=== PATIENT | male | born 1955 | race Caucasian/White ===

== ENCOUNTER 2021-12-29 09:45 | Outpatient (CLI) | payer BC, SELFPAY ==
[2021-12-29 13:52] LABS: Chloride* 103 mmol/L (96-114); Potassium* 4.7 mmol/L (3.6-5.1); Sodium* 140 mmol/L (135-149)
[2021-12-29 13:55] LABS: Carbon Dioxide* 30 mmol/L (20-32); Cholesterol* 161 mg/dL (90-199); Creatinine* 1.1 mg/dL (0.5-1.5); Estimated Glomerular Filt Rate 74 ml/min
[2021-12-29 13:56] LABS: Blood Urea Nitrogen* 18 mg/dL (7-30); Glucose* 86 mg/dL (60-115); HDL Cholesterol* 55 mg/dL (>=40); LDL Cholesterol Calculated 95 mg/dL (<100); Triglycerides* 54 mg/dL (40-149)
[2021-12-29 14:24] LABS: PSA Screen* 0.79 ng/mL (0.10-4.00)
== END 2021-12-29 09:46 | disposition home or self-care (01) ==
PROVIDERS: PCP Family Medicine; Visit Provider Family Medicine
DX: Z12.5 Encounter for screening for malignant neoplasm of prostate (principal); Z13.1 Encounter for screening for diabetes mellitus; Z13.6 Encounter for screening for cardiovascular disorders
CPT/HCPCS: 80048; 80061; 84153

== ENCOUNTER 2022-04-12 14:58 | Outpatient (CLI) | payer BC, SELFPAY ==
[2022-04-12 17:24] LABS: Chloride* 106 mmol/L (96-114); Potassium* 4.2 mmol/L (3.6-5.1); Sodium* 139 mmol/L (135-149)
[2022-04-12 17:27] LABS: Blood Urea Nitrogen* 13 mg/dL (7-30); Calcium* 9.3 mg/dL (8.4-10.6); Carbon Dioxide* 26 mmol/L (20-32); Estimated Glomerular Filt Rate 82 ml/min; Glucose* 84 mg/dL (60-115)
[2022-04-12 17:28] LABS: Magnesium* 2.1 mg/dL (1.5-2.6)
== END 2022-04-12 14:59 | disposition home or self-care (01) ==
PROVIDERS: PCP Family Medicine; Visit Provider Family Medicine
DX: R25.2 Cramp and spasm (principal)
CPT/HCPCS: 80048; 83735

== ENCOUNTER 2022-06-24 13:22 | Outpatient (CLI) | payer BC, SELFPAY | END 2022-06-24 13:23 | disposition home or self-care (01) | LOC: LONREF 13:24 | PROVIDERS: PCP Family Medicine; Visit Provider Family Medicine | DX: M62.838 Other muscle spasm (principal) | CPT/HCPCS: 80048 ==

== ENCOUNTER 2022-12-27 14:42 | Outpatient (CLI) | payer BC, SELFPAY | END 2022-12-27 14:43 | disposition home or self-care (01) | LOC: LONREF 14:44 | PROVIDERS: PCP Family Medicine; Visit Provider Family Medicine | DX: R31.9 Hematuria, unspecified (principal); Z12.5 Encounter for screening for malignant neoplasm of prostate | CPT/HCPCS: 84153 ==

== ENCOUNTER 2023-01-04 07:31 | Outpatient (CLI) | payer BC, SELFPAY ==
--- NOTE | 2023-01-04 08:00 | CRLHL7_ITS ---
For Patients: As a result of the Century Cures Act, medical imaging exams and procedure reports are released immediately into your electronic medical record. You may view this report before your referring provider. If you have questions, please contact your health care provider. INDICATION: Hematuria. TECHNIQUE: CT abdomen and pelvis urogram without and with 100 cc Isovue 370 intravenous contrast. Contrast images were obtained in the nephrographic and delayed phases. COMPARISON: None. FINDINGS: KIDNEYS: The unenhanced images demonstrate no kidney or ureteral stones. The kidneys are normal in caliber and demonstrate normal uptake and excretion of IV contrast. No masses. The renal collecting systems and ureters are symmetrical, normal in caliber, and without evidence of mass or filling defect. URINARY BLADDER: The bladder wall is trabeculated and measures up to 5.4 millimeters. OTHER: Mild dependent areas of atelectasis are present. No pleural effusion. No free intraperitoneal air. No intrahepatic mass. Normal gallbladder. Spleen unremarkable. Small hiatal hernia. Normal adrenal glands. The pancreas is normal. Atherosclerotic changes. A few scattered prostate calcifications are present. There is no bowel obstruction. No free fluid or abscess. The appendix is normal. Stool is present throughout the colon. IMPRESSION: 1. Normal kidneys and ureters. 2. Trabecular thickening of the bladder wall measuring up to 5.4 millimeters. Cystoscopy suggested. Please note that all CT scans at this facility use dose modulation, iterative reconstruction, and/or weight-based dosing when appropriate to reduce radiation dose to as low as reasonably achievable. Dictated by Chet Muñiz MD @ 01/04/2023 11:04:23 AM (Electronically Signed)
== END 2023-01-04 07:32 | disposition home or self-care (01) ==
PROVIDERS: PCP Family Medicine; Visit Provider Family Medicine
DX: R31.9 Hematuria, unspecified (principal)
CPT/HCPCS: 74178; Q9967

== ENCOUNTER 2023-03-16 10:10 | Outpatient (CLI) | payer BC, SELFPAY ==
--- OUTSIDE RECORDS SUMMARY | 2023-03-23 09:49 | XMS_ITS | Clinical Summary ---
Author Name Unknown Organization [facility] Address [address] [place] [address] Care Team Providers Care Belt Picker Name Role Phone Elsewhere, Pcp Primary Care Provider Unavailabl e Source Comments Patient records contain information from all sites at [facility]. For routine questions regarding patient records, call [phone] during business hours, M-F 8:00 AM - 5:00 PM Central Time. Record requests for emergency care only can be directed to [phone] at any time.[facility] Allergies Active Allergy Reactions Criticality Noted Date Comments House Dust Other (see comments) 06/21/2022 Sneezing, watery eyes Medications Medication Sig Dispensed Refills Start Date End Date Status clonazePAM (KlonoPIN) 1 mg tablet Take 1 mg by mouth 2 (two) times a day as needed. 0 03/30/2022 Active UNABLE TO FIND Apply topically. Lidocaine-diltia zem 2% 0 Active fexofenadine (MARK) 180 mg tablet 180 mg daily. 0 Active fluticasone propionate (FLOVENT HFA) 220 mcg/actuation inhaler Administer into nostril(s) as needed. 0 12/29/2021 Active omeprazole (PriLOSEC) [address] capsule Take 20 mg by mouth every morning before breakfast. 0 09/21/2022 Active polyethylene glycol (MIRALAX) 17 gram/dose oral powder Take 17 g by mouth once. 0 09/21/2022 Active UNABLE TO FIND Apply topically. Lidocaine with Diltiazem 2 % 0 09/28/2022 Active lidocaine (LC-5) 5 % rectal cream Apply 1 Application topically as needed for hemorrhoids. Apply to anus. 30 g 3 02/21/2023 Active diazePAM 10 mg suppository Insert 1 suppository (10 mg total) into the rectum 3 (three) times a day. 60 suppository 1 03/02/2023 Active dilTIAZem 2%-vanicream Apply topically 2 (two) times a day. Apply to anus 30 g 3 03/17/2023 Active diazePAM 10 mg suppository Insert 1 suppository (10 mg total) into the rectum 3 (three) times a day. 60 suppository 1 03/02/2023 Discontinu ed(Reorder ) Active Problems Problem Noted Date Diagnosed Date Hemorrhoids External 02/21/2023 Fissure Anal 06/21/2022 Constipation 06/21/2022 Encounters Date Type Department Care Team Description 03/23/2023 1:15 PM PUMP MACHINE OPERATOR - 03/23/2023 2:30 PM PUMP MACHINE OPERATOR [facility] in [place], [place] [address] [place] [address] Av Kennedy M.D. EXAMINATION UNDER ANESTHESIA ANORECTAL. 03/23/2023 10:45 AM PUMP MACHINE OPERATOR Hospital Encounter [facility] in [place], [place] [address] [place] [address] Av Kennedy M.D. 03/17/2023 3:45 PM PUMP MACHINE OPERATOR Virtual Visit Division of Colon and Rectal Surgery in [place], [place] [address] [place] [address] Rishi Edward APRN, C.N.P., M.S. Fissure Anal (Primary Dx) 03/13/2023 Orders Only Division of Colon and Rectal Surgery in [place], [place] [address] [place] [address] Rishi Edward APRN, C.N.P., M.S. 03/02/2023 Orders Only Division of Colon and Rectal Surgery in [place], [place] [address] [place] [address] Rishi Edward APRN, C.N.P., M.S. 03/02/2023 Orders Only Division of Colon and Rectal Surgery in [place], [place] [address] [place] [phone] Rishi Edward APRN, C.N.P., M.S. 02/21/2023 8:30 AM PUMP MACHINE OPERATOR Comprehensive Visit Division of Colon and Rectal Surgery in [place], [place] [address] [place] [phone] Rishi Edward APRN, C.N.P., M.S. Fissure Anal (Primary Dx); Hemorrhoids External 02/20/2023 2:45 PM PUMP MACHINE OPERATOR Clinical Communication Virtual Review in [place], [place] [address] [place] [address] Pre-visit Intake 02/16/2023 Orders Only Division of Colon and Rectal Surgery in [place], [place] [address] [place] [phone] Rishi Edward APRN, Robert.N.P., M.S. 02/15/2023 Clinical Communication Division of Colon and Rectal Surgery in [place], [place] [address] [place] [phone] Rishi Edward APRN, C.N.P., M.S. Recurrent symptoms 02/15/2023 [facility] [address] [place] [address] Varsha Andrews M.D. Fissure Anal (Primary Dx); Hemorrhoids External from Last 3 Months Family History Medical History Relation Name Comments Alcohol abuse Father Rm Washington heavy drinker. Stopped drinking in early 70's Anxiety disorder Father Rm Washington Colon cancer Father Rm Washington Hypertension Father Rm Washington Other cancer Father Rm Washington Bladder Cancer Transient ischemic attack Father Rm Washington he was in his early 90's Prostate cancer Father's Brother Leonidas Washington Suicide Attempts Father's Brother Leonidas Washington Other cancer Father's Sister Cindy Sanchez don't know Other cancer Sister Irma Undefined Cance r Relation Name Status Comments Father Rm Washington Father's Brother Leonidas Washington Father's Sister Cindy Sanchez Sister Irma Social History Tobacco Use Types Packs/Day Years Used Date Smoking Tobacco: Never Smokeless Tobacco: Never Alcohol Use Standard Drinks/Week Comments Not Currently 0 (1 standard drink = 0.6 oz pure alcohol) I haven't had any alcohol in the last 10 yrs Humiliation, Afraid, Rape, and Kick questionnair e Answer Date Recorded Within the last year, have y ou been afraid of your partner or ex-partner? No 09/30/2022 Within the last year, have y ou been humiliated or emotionally abused in other ways by your partner or ex-partner? No Within the last year, have y ou been kicked, hit, slapped, or otherwise physically hurt by your partner or ex-partner? No 09/30/2022 Within the last year, have y ou been raped or forced to have any kind of sexual activity by your partner or ex-partner? No 09/30/2022 Overall Financial Resource Strain (CARDIA) Answe r Date Recorded How hard is it for you to pa y for the very basics like food, housing, medical care, and heating? Somewhat hard 09/30/2022 Exercise Vital Sign Answer Date Recorde d On average, how many days pe r week do you engage in moderate to strenuous exercise (like a brisk walk)? 2 days 09/30/2022 On average, how many minutes do you engage in exercise at this level? 20 min 09/30/2022 Hunger Vital Sign Answer Date Recorded Within the past 12 months, y ou worried that your food would run out before you got the money to buy more. Never true 10/01/19 23 Within the past 12 months, t he food you bought just didn't last and you didn't have money to get more. Never true 09/30/2022 PRAPARE - Transportation Answer Date Re corded In the past 12 months, has l ack of transportation kept you from medical appointments or from getting medications? No 09/04 In the past 12 months, has l ack of transportation kept you from meetings, work, or from getting things needed for daily living? No 09/30/2022 Nutrition Answer Date Recorded Nutrition: EVOO Fat Source Unknown 09/30 On average, how many serving s of fruits and vegetables do you eat per day (serving size is equal to 1 cup or approximately the size of a tennis ball)? 3-5 09/30/2022 Dental Answer Date Recorded Dental: Regular Dentist No 10/01/19 Employment Answer Date Recorded Employment status Retired 09/30/2022 Housing Stability Answer Date Recorded What is your living situation today? I [facility] a [facility] place to live 09/30/2022 Sex and Gender Information Value Date Recorded Sex Assigned at Male 09/30/2022 4:37 AM CDT Gender Identity Male 09/30/2022 4:37 AM CDT Sexual Orientation Straight 09/30/2022 4: 37 AM CDT Last Filed Vital Signs Vital Sign Reading Time Taken Comments Blood Pressure 112/68 07/05/2022 1:30 PM CDT Pulse 54 07/05/2022 1:30 PM CDT Temperature 36.5 ??C (97.7 ??F) 07/05/2022 12:59 PM C DT Respiratory Rate 12 07/05/2022 1:30 PM CDT Oxygen Saturation 97% 07/05/2022 1:30 PM CDT Inhaled Oxygen Concentration - - Weight 74.6 kg (164 lb 7.4 oz) 06/21/2022 7:46 A M CDT Height 176 cm (5' 9.29) 06/21/2022 7:46 AM CDT Body Mass Index 24.08 06/21/2022 7:46 AM CDT Plan of Treatment Scheduled Procedures Name Priority Associated Diagnoses Date/Ti me EXAMINATION UNDER ANESTHESIA ANORECTAL Fissure Anal Hemorrhoids External 03/23/2023 2:14 PM PUMP MACHINE OPERATOR INJECTION BOTOX - INTERNAL ANAL SPHINCTER Fissure Anal Hemorrhoids External 03/23/2023 2:14 PM PUMP MACHINE OPERATOR EXCISION SKIN TAG ANAL Fissure Anal Hemorrhoids External 03/23/2023 2:14 PM PUMP MACHINE OPERATOR Health Maintenance Due Date Last Done Comments CT Colonography 1954 Cologuard 1955 Colonoscopy 1955 Colorectal Cancer Surveillance 1955 Fasting Glucose for Diabetes Screening 1955 Hepatitis C Screening 1955 Pneumococcal vaccine (65+ ye ars) (2 of 2 - PCV) 07/17/2021 07/17/2020 Depression Screening (Annual PHQ-2) 03/06/2023 Fall Risk Screen (Annual) 03/06/2023 DTaP,Tdap,and Td Vaccines (2 - Td or Tdap) 07/17/2030 07/17/2020, 12/31/2009 Zoster Vaccines Completed 10/11/2018, 08/08/2017 COVID-19 Vaccine Completed 01/05/2023, , 06/15/2021, Additional history exists Influenza Vaccine Completed 01/05/2023, , 01/22/2021, Additional history exists Advance Directives For more information, please contact: [phone] Documents on File Type Date Recorded Patient Duct Layer Supervisor Expl anation Advance Directives 07/06/2022 8:39 AM Jazmyne Ochoa HCPOA/ADVOCATE/AGENT/RE PRESENTATIVE/SURROGATE Latest Code Status on File Code Status Date Activated Date Inactivated Comments Full Code 07/05/2022 10:35 AM 07/05/2022 4:05 PM Question Answer Comments Full Code: Discussed Healthcare Agents on File Name Relationship Healthcare Agent Relationshi p Communication Jazmyne [place] Spouse Health Care Agent Judy Murphy Unknown First Alternate Health Care Agent Care Teams Belt Picker Relationship Specialty Start Date End Date Elsewhere, Pcp PCP - General Internal Medicine 07/05/22
--- OUTSIDE RECORDS SUMMARY | 2023-03-23 09:49 | XMS_ITS | Continuity of Care Document ---
Author Name Unknown Address [address] [place] [address] Phone [phone] Organization [facility] Address [address] [place] [address] Care Team Providers Care Appraiser Real Estate Name Role Phone JENNA DE LA PAZ Primary Care Provider [phone] Assessment Encounter Date Assessment Date Assessment LastModified by Organization Details LastModified Time 01/25/2023 01/25/2023 67 Y/O MALE, HX FOR AN EPISODE OF HEMATURIA. SPONTANEOUSLY CLEARED. U/A SMALL BLOOD. CYSTO - NEG. REVIEWED RECORDS, LABS ORDERED AND REVIEWED U/A, CYSTO PLAN SCHEDULED C.T. UROGRAM. WILL CALL RESULTS. Not available 01/28/2023 16:29:22 Plan of Treatment Reminders Order Date Submit Date Provider Last Modified By Organization Details Last Modified Time Details Appointments None recorded. Lab urinalysis , dipstick 2022 023 [facility], [address], [place], [address], 10:26:41 Referral None recorded. Procedures None recorded. Surgeries None recorded. Imaging None recorded. Medication Orders None recorded. Patient TargetsNo targets recorded. Patient InstructionsNo instructions recorded. Reason for Referral None Reported. Results Created Date Observation Date Name Description Value Unit Range Abnormal Flag LastModifiedBy Organization Detail LastModifiedTime 01/26/2001/25/2023 urina lysis , dipst ick Color-Status Yellow Not Available [facility] [address], [place], [address], 01/25/2023 10:25:59 01/26/20 23 01/25/2023 urina lysis , dipst ick Clarity-Stat us Clear Not Available [facility] [address], [place], [address], 01/25/2023 10:25:59 01/26/20 23 01/25/2023 urina lysis , dipst ick Glucose-Stat us Negati ve Not Available [facility] [address], [place], [address], 01/25/2023 10:25:59 01/26/20 23 01/25/2023 urina lysis , dipst ick Bilirubin-St atus Negati ve Not Available [facility] [address], [place], [address], 01/25/2023 10:25:59 01/26/20 23 01/25/2023 urina lysis , dipst ick Ketones-Stat us Negati ve Not Available [facility] [address], [place], [address], 01/25/2023 10:25:59 01/26/20 23 01/25/2023 urina lysis , dipst ick Sp [place]-Stat us 1.015 Not Available [facility] [address], [place], [address], 01/25/2023 10:25:59 01/26/20 23 01/25/2023 urina lysis , dipst ick pH-Status 7.0 Not Available [facility] [address], [place], [address], 01/25/2023 10:25:59 01/26/20 23 01/25/2023 urina lysis , dipst ick Urobilinogen -Status 0.2 Not Available [facility] [address], [place], [address], 01/25/2023 10:25:59 01/26/20 23 01/25/2023 urina lysis , dipst ick Nitrates-Sta tus negati ve Not Available [facility] [address], [place], [address], 01/25/2023 10:25:59 01/26/20 23 01/25/2023 urina lysis , dipst ick Blood-Status Trace Not Available [facility] [address], [place], [address], 01/25/2023 10:25:59 01/26/20 23 01/25/2023 urina lysis , dipst ick Leuko-Status Negati ve Not Available [facility] [address], [place], [address], 01/25/2023 10:25:59 01/26/20 23 01/25/2023 urina lysis , dipst ick Specimen Type Voided Not Available [facility] [address], [place], [address], 01/25/2023 10:25:59 Result Notes None recorded. Problems Name Status [place] Date Resolution Date Notes Provider Name and Address Organization Details Recorded Time Heriberto hematuria Active 3 Christian Iraheta MD [address] [place] [address],[address], [address], [facility] 01/25/2023 10:22:50 Problem Notes None recorded. Procedures Surgical History Date Name Laterality Status Provider Name and Address Organization Details Recorded Time 01/26/20 23 CystoscopyMale completed Christian Iraheta MD [address] [place] [address],[address], [address], [facility] 01/28/2023 16:26:24 Orthopedic Surgery completed Christian Iraheta MD [address] [place] [address],[address], [address], [facility] 01/25/2023 10:23:41 Imaging Results None recorded. Procedure Notes None recorded. Medical Equipment None Reported. Allergies No known drug allergies Medications Name Sig Start Date Stop Date Status Note LastModified by Organization Details LastModified Time clonazepam 1 mg tablet TAKE ONE TABLET BY MOUTH TWICE A DAY NEEDED FOR ANXIETY active Not Available Not Available No t Available fexofenadin e 180 mg tablet Take 1 tablet every day by oral route. active Not Available Not Available No t Available Nitro-Bid 2 % transdermal ointment 01/25 completed Not Available Not Available Not Available montelukast 10 mg tablet TAKE ONE TABLET(10 MG) BY MOUTH EVERY DAY AT BEDTIME active Not Available Not Available No t Available finasteride 5 mg tablet TAKE 1/2 TABLET(2. 5 MG) BY MOUTH EVERY DAY 01/25 completed Not Available Not Available Not Available clindamycin 1 % lotion APPLY 1 APPLICATI ON TOPICALLY EVERY DAY DIRECTED 01/25 completed Not Available Not Available Not Available Miralax active Not Available Not Avail able Not Available lidocaine 2 % mucosal jelly in applicator Take by mucous route. active Not Available Not Available No t Available Vitals Date Recorded Body height Body mass index (BMI) Body weight Provider Name and Address Organization Details Last Updated DateTime 01/25/2023 172.72 cm 26 kg/m2 19652.3 g Christian Iraheta MD [address] [place] [address] [facility] 01/25/2023 10:20:42 Social History Question Answer Notes LastModified by Organizat ion Details LastModified Time Tobacco Smoking Status Never Smoker Christian Iraheta MD [address] [place] [address], [address] [place] [address] Urology 01/25/2023 10:23:30 What Is Your Level Of Alcohol Consumption? None Information not available 01/25/2023 What Was The Date Of Your Most Recent Tobacco Screening? 01/25/2023 Information not available 01/25/2023 Sex: Male Functional Status None recorded. Mental Status None recorded. Family History Relationship Description Onset Age of this Age Resolved Age Notes Father Malignant tumor of u rinary bladder Medical History Condition Response Diabetes N Sexually Transmitted Infection N Bleeding Disorder N Other N High Blood Pressure Y Kidney Stones N High Cholesterol N GERD/Acid Reflux Y Heart Disease N Cancer N Depression Y Lung Disease N Immunizations Vaccine Type Date Status Provider Name and Address Organization Details Recorded Time zoster recombinant 10/11/2018 completed Christian grady MD [address] [place] [address],[address], [address], [facility] 01/25/2023 10:20:47 influenza, high-dose, quadrivalent 12/23/2021 completed Christian Iraheta MD [address] [place] [address],[address], [address], [facility] 01/25/2023 10:20:47 influenza, high-dose, quadrivalent 01/05/2023 completed Christian Iraheta MD [address] [place] [address],[address], [address], [facility] 01/25/2023 10:20:48 influenza, high-dose, quadrivalent 01/22/2021 completed Christian Iraheta MD [address] [place] [address],[address], [address], [facility] 01/25/2023 10:20:48 MMR 07/12/2018 completed Christian Iraheta MD [address] [place] [address],[address] [place] [address], [phone], [facility] 01/25/2023 10:20:48 COVID-19, mRNA, LNP-S, PF, 30 mcg/0.3 mL dose 05/12/2020 completed Christian Iraheta MD [address] [place] [address],[address], [address], [facility] 01/25/2023 10:20:48 COVID-19, mRNA, LNP-S, PF, 30 mcg/0.3 mL dose 06/02/2020 completed Christian Iraheta MD [address] [place] [address],[address], [address], [facility] 01/25/2023 10:20:48 COVID-19, mRNA, LNP-S, PF, 30 mcg/0.3 mL dose 01/01/2021 completed Christian Iraheta MD [address] [place] [address],[address], [address], [facility] 01/25/2023 10:20:48 COVID-19, mRNA, LNP-S, PF, 30 mcg/0.3 mL dose, norma-sucrose 06/15/2021 completed Christian Iraheta MD [address] [place] [address],[address], [place], [address], [facility] 01/25/2023 10:20:48 COVID-19, mRNA, LNP-S, bivalent, PF, 30 mcg/0.3 mL dose 12/23/2021 completed Christian Iraheta MD [address] [place] [address],[address], [place], [address], [facility] 01/25/2023 10:20:48 COVID-19, mRNA, LNP-S, PF, norma-sucrose, 30 mcg/0.3 mL 01/05/2023 completed Christian Iraheta MD [address] [place] [address],[address] [place] [address], [phone], [facility] 01/25/2023 10:20:48 pneumococcal polysaccharide PPV23 07/17/2020 completed Christian Iraheta MD [address] [place] [address],[address] [place] [address], [phone], [facility] 01/25/2023 10:20:48 Tdap 07/17/2020 completed Christian Iraheta MD [address] [place] [address],[address] [place] [address], [address], [facility] 01/25/2023 10:20:48 Td (adult), 5 Lf tetanus toxoid, preservative free, adsorbed 12/31/2009 completed Christian Iraheta MD [address] [place] [address],[address], [address], [facility] 01/25/2023 10:20:48 influenza, injectable, quadrivalent, preservative free 12/14/2018 completed Christian Iraheta MD [address] [place] [address],[address], [address], [facility] 01/25/2023 10:20:48 Past Encounters Encounter ID Performer Location Encounter Start Date Encounter Closed Date Diagnosis/Indication [id number] MD ABDULAZIZ [facility] [place] [address] 01/25/2023 10:06:31 02/01/2023 15:57:31 Heriberto hematuria Health Concerns Section Related Observation LastModified by Organization Detai ls LastModified Time None Recorded Concern Status LastModified by Organization Details LastModified Time None Recorded Payers Encounter Date Sequence Insurance Name Policy Number Policy Curtis Covered Member ID Curtis Member ID Guarantor Name 01/25/2023 1 [id number] Slim Washington [id number] Slim Starkyd Notes Date Note Type Note Provider Name and Address Organization Details Recorded Time 01/25/2023 text/html HPI Notes: 67 YO M HERE FOR EPISODIC HEMATURIA. HE REPORTS PASSING SMALL CLOTS IN DECEMBER. [facility] TODAY SHOWS TRACE RBC. FATHER HAD BLADDER CANCER .VOIDING WELL. NO BLEEDING PROBLEMS Christian Iraheta MD [address] [facility],[address], [place], [address], [facility] 01/28/2023 16:30:29
--- OUTSIDE RECORDS SUMMARY | 2023-03-23 09:49 | XMS_ITS | Referral Summary ---
Author Name Unknown Organization [facility] Address [address] [place] [address] Care Team Providers Care Prepared Foods Supervisor Name Role Phone Elsewhere, Pcp Primary Care Provider Unavailabl e Source Comments Patient records contain information from all sites at [facility]. For routine questions regarding patient records, call [phone] during business hours, M-F 8:00 AM - 5:00 PM Central Time. Record requests for emergency care only can be directed to [phone] at any time.[facility] Encounters Date Type Department Care Team Description 03/23/2023 1:15 PM CLINICAL TRIALS SPECIALIST - 03/23/2023 2:30 PM CLINICAL TRIALS SPECIALIST Surgery Outpatient Procedure Center in [place], [place] [address] [place] [address] Av Kennedy M.D. EXAMINATION UNDER ANESTHESIA ANORECTAL. 03/23/2023 10:45 AM CLINICAL TRIALS SPECIALIST Hospital Encounter Outpatient Procedure Center in [place], [place] [address] [place] [phone] Av Kennedy M.D. 03/17/2023 3:45 PM CLINICAL TRIALS SPECIALIST Virtual Visit Division of Colon and Rectal Surgery in [place], [place] [address] [place] [phone] Rishi Edward, MORENA, C.N.P., M.S. Fissure Anal (Primary Dx) 03/13/2023 Orders Only Division of Colon and Rectal Surgery in [place], [place] [address] [place] [phone] Rsihi Edward APRN, C.N.P., M.S. 03/02/2023 Orders Only Division of Colon and Rectal Surgery in [place], [place] [address] [place] [phone] Rishi Edward APRN, Robert.N.P., M.S. 03/02/2023 Orders Only Division of Colon and Rectal Surgery in [address] [phone] Rishi Edward APRN, C.N.P., M.S. 02/21/2023 8:30 AM CLINICAL TRIALS SPECIALIST Comprehensive Visit Division of Colon and Rectal Surgery in [address] [phone] Rishi Edward APRN, Robert.N.P., M.S. Fissure Anal (Primary Dx); Hemorrhoids External 02/20/2023 2:45 PM CLINICAL TRIALS SPECIALIST Clinical Communication Virtual Review in [place], [place] 200 [place] [address] Pre-visit Intake 02/16/2023 Orders Only Division of Colon and Rectal Surgery in [place], [place] [address] [place] [phone] Rishi Edward APRN, C.N.P., M.S. 02/15/2023 Clinical Communication Division of Colon and Rectal Surgery in [address] [phone] Rishi Edward APRN, C.N.P., M.S. Recurrent symptoms 02/15/2023 [facility] Orders [facility] [address] [place] [address] Varsha Andrews M.D. Fissure Anal (Primary Dx); Hemorrhoids External from Last 3 Months Allergies Active Allergy Reactions Criticality Noted Date [...] External 02/21/2023 Fissure Anal 06/21/2022 Constipation 06/21/2022 Social History Tobacco Use Types Packs/Day Years [...] money to buy more. Never true 10/01/19 Within the past 12 months, t he [...] your living situation today? I have a [facility] place to live 09/30/2022 Sex and Gender [...] Fissure Anal Hemorrhoids External 03/23/2023 2:14 PM CLINICAL TRIALS SPECIALIST INJECTION BOTOX - INTERNAL ANAL SPHINCTER Fissure Anal Hemorrhoids External 03/23/2023 2:14 PM CLINICAL TRIALS SPECIALIST EXCISION SKIN TAG ANAL Fissure Anal Hemorrhoids External 03/23/2023 2:14 PM CLINICAL TRIALS SPECIALIST Advance Directives For more information, please contact: [phone] Documents on File Type Date Recorded Patient Ad Operations Coordinator Expl anation Advance Directives 07/06/2022 8:39 AM Jazmyne Ochoa HCPOA/ADVOCATE/AGENT/RE PRESENTATIVE/SURROGATE Latest Code Status on File Code Status Date Activated Date Inactivated Comments Full Code 07/05/2022 10:35 AM 07/05/2022 4:05 PM Question Answer Comments Full Code: Discussed Healthcare Agents on File Name Relationship Healthcare Agent [facility] Jazmyne Washington Spouse Health Care Agent Judy Murphy Unknown First Alternate Health Care Agent Care Teams Prepared Foods Supervisor Relationship Specialty Start Date End Date Elsewhere, Pcp PCP - General Internal Medicine 07/05/22
--- OUTSIDE RECORDS SUMMARY | 2023-03-23 09:49 | XMS_ITS | Encounter Summary ---
Author Name Unknown Organization [facility] Address [address] [place] [address] Care Team Providers Care Repair Operator Name Role Phone Elsewhere, Pcp Primary Care Provider Unavailabl e Reason for Visit * Auth/Cert (Routine) Specialty Diagnoses / Procedures Referred By Isiah t Referred To Contact Diagnoses Fissure Anal Hemorrhoids External Fissure Anal [K60.2] Hemorrhoids External [K64.4] Procedures TX CHEMODENERV INTRNL ANAL SPHINCTER TX EXCISN EXTRNL PAPILLA ANUS SNGL TX INJECTION,ONABOTULINUMTOXINA EXAMINATION UNDER ANESTHESIA ANORECTAL INJECTION BOTOX - INTERNAL ANAL SPHINCTER EXCISION SKIN TAG ANAL Referral ID Status Reason Start Date Expiration Date Visits Re quested Visits Authorized [id number] 1 1 Encounter Details Date Type Department Care Team (Late st Contact Info) Description 03/23/2023 1:15 PM MEAL TEMPERER - 03/23/2023 2:30 PM MEAL TEMPERER Surgery Outpatient Procedure Center in [place], [place] 200 [place] [address] Av Kennedy M.D. [address] [place] [phone] EXAMINATION UNDER ANESTHESIA ANORECTAL. Social History Tobacco Use Types Packs/Day Years [...] Orientation Straight 09/30/2022 4: 37 AM CDT documented as of this encounter Plan of Treatment Scheduled Procedures Name Priority Associated Diagnoses Date/Ti me EXAMINATION UNDER ANESTHESIA ANORECTAL Fissure Anal Hemorrhoids External 03/23/2023 2:14 PM MEAL TEMPERER INJECTION BOTOX - INTERNAL ANAL SPHINCTER Fissure Anal Hemorrhoids External 03/23/2023 2:14 PM MEAL TEMPERER EXCISION SKIN TAG ANAL Fissure Anal Hemorrhoids External 03/23/2023 2:14 PM MEAL TEMPERER documented as of this encounter Visit Diagnoses Diagnosis Fissure Anal Hemorrhoids External documented in this encounter Admitting Diagnoses Diagnosis Fissure Anal Hemorrhoids External documented in this encounter Care Teams Repair Operator Relationship Specialty Start Date End Date Elsewhere, Pcp PCP - General Internal Medicine 07/05/22 documented as of this encounter
--- OUTSIDE RECORDS SUMMARY | 2023-03-23 09:49 | XMS_ITS | Data Portability ---
Author Name Unknown Address [address] [place] [address] Phone [phone] Organization [facility] Address [address] [place] [address] Care Team Providers Care Table Tender Name Role Phone JENNA DE LA PAZ Primary Care Provider Assessment Encounter Date Assessment Date Assessment LastModified [...] 2022 023 [facility], [address], [place], [address], 3 10:26:41 Referral None recorded. Procedures None recorded. Surgeries None recorded. Imaging None recorded. Medication Orders None recorded. Patient TargetsNo targets recorded. Patient InstructionsNo instructions recorded. Reason for Referral None Reported. Results Created Date Observation Date Name Description Value Unit Range Abnormal Flag LastModifiedBy Organization Detail LastModifiedTime 01/26/2001/25/2023 urina lysis , dipst ick Color-Status Yellow Not Available [facility] [address], [place], [address], 01/25/2023 10:25:59 01/26/20 23 01/25/2023 urina lysis , dipst ick Clarity-Stat us Clear Not Available [facility] [address], [place], [address], 01/25/2023 10:25:59 01/26/20 23 01/25/2023 urina lysis , dipst ick Glucose-Stat us Negati ve Not Available [facility] [address], [place], [address], 01/25/2023 10:25:59 01/26/20 23 01/25/2023 urina lysis , dipst ick Bilirubin-St atus Negati ve Not Available [facility] [address], [place], [address], 01/25/2023 10:25:59 01/26/20 23 01/25/2023 urina lysis , dipst ick Ketones-Stat us Negati ve Not Available [facility] [address], [place], [address], 01/25/2023 10:25:59 01/26/20 23 01/25/2023 urina lysis , dipst ick Sp [place]-Stat us 1.015 Not Available [facility] [address], [place], [address], 01/25/2023 10:25:59 01/26/20 23 01/25/2023 urina lysis , dipst ick pH-Status 7.0 Not Available [facility] [address], [place], [address], 01/25/2023 10:25:59 01/26/20 23 01/25/2023 urina lysis , dipst ick Urobilinogen -Status 0.2 Not Available [facility] [address], [place], [address], 01/25/2023 10:25:59 01/26/20 23 01/25/2023 urina lysis , dipst ick Nitrates-Sta tus negati ve Not Available [facility] [address], [place], [address], 01/25/2023 10:25:59 01/26/20 23 01/25/2023 urina lysis , dipst ick Blood-Status Trace Not Available [facility] [address], [place], [address], 01/25/2023 10:25:59 01/26/20 23 01/25/2023 urina lysis , dipst ick Leuko-Status Negati ve Not Available [facility] [address], [place], [address], 01/25/2023 10:25:59 01/26/20 23 01/25/2023 urina lysis , dipst ick Specimen Type Voided Not Available [facility] [address], [place], [address], 01/25/2023 10:25:59 Result Notes None recorded. Problems Name Status Onset Date Resolution Date Notes Provider Name and Address Organization Details Recorded Time Heriberto hematuria Active 3 Christian Iraheta MD [address] [place] [address], [phone], [facility] 01/25/2023 10:22:50 Problem Notes None recorded. Procedures Surgical History Date Name Laterality Status Provider Name and Address Organization Details Recorded Time 01/26/20 CystoscopyMale completed Christian Iraheta MD [address] [place] [address], [phone], [facility] 01/28/2023 16:26:24 Orthopedic Surgery completed Christian Iraheta MD [address] [place] [address],[address], [address], [facility] 01/25/2023 10:23:41 Imaging Results None recorded. [...] Updated DateTime 01/25/2023 172.72 cm 26 kg/m2 89996.3 g Christian Iraheta MD [address] [place] [address], [address] [place] [address] Urology 01/25/2023 10:20:42 Social History Question Answer Notes LastModified by Organizat ion Details LastModified Time Tobacco Smoking Status Never Smoker Christian Iraheta MD [address] [place] [address], [address] [place] [address] Urology 01/25/2023 10:23:30 What Is Your Level Of Alcohol Consumption? None Information not available 01/25/2023 What Was The Date Of Your Most Recent Tobacco Screening? 01/25/2023 Information not available 01/25/2023 Sex: Male Functional Status None recorded. Mental Status None recorded. Family History Relationship Description Onset Age of this Age Resolved Age Notes Father Malignant tumor of u rinary bladder Medical History Condition Response Sexually Transmitted Infection N Diabetes N Other N Bleeding Disorder N High Blood Pressure Y Kidney Stones N High Cholesterol N GERD/Acid Reflux Y Heart Disease N Cancer N Depression Y Lung Disease N Immunizations Vaccine Type Date Status Provider Name and Address Organization Details Recorded Time zoster recombinant 10/11/2018 completed Christian grady MD [address] [place] [address],[address], [address], [facility] 01/25/2023 10:20:47 influenza, high-dose, quadrivalent 12/23/2021 completed Christian Iraheta MD [address] [place] [address],[address], [phone], [facility] 01/25/2023 10:20:47 influenza, high-dose, quadrivalent 01/05/2023 completed Christian Iraheta MD [address] [place] [address],[address], [address], [facility] 01/25/2023 10:20:48 influenza, high-dose, quadrivalent 01/22/2021 completed Christian Iraheta MD [address] [place] [address],[address], [address], [facility] 01/25/2023 10:20:48 MMR 07/12/2018 completed Christian Iraheta MD [address] [place] [address],[address], [address], [facility] 01/25/2023 10:20:48 COVID-19, mRNA, LNP-S, PF, 30 mcg/0.3 mL dose 05/12/2020 completed Christian Iraheta MD [address] [place] [address],[address], [address], [facility] 01/25/2023 10:20:48 COVID-19, mRNA, LNP-S, PF, 30 mcg/0.3 mL dose 06/02/2020 completed Christian Iraheta MD [address] [place] [address],[address] [address], [facility] 01/25/2023 10:20:48 COVID-19, mRNA, LNP-S, PF, 30 mcg/0.3 mL dose 01/01/2021 completed Christian Iraheta MD [address] [place] [address],[address], [address], [facility] 01/25/2023 10:20:48 COVID-19, mRNA, LNP-S, PF, 30 mcg/0.3 mL dose, norma-sucrose 06/15/2021 completed Christian Iraheta MD [address] [place] [address],[address], [place], [address], [facility] 01/25/2023 10:20:48 COVID-19, mRNA, LNP-S, bivalent, PF, 30 mcg/0.3 mL dose 12/23/2021 completed Christian Iraheta MD [address] [place] [address],[address], [place], [address], [facility] 01/25/2023 10:20:48 COVID-19, mRNA, LNP-S, PF, norma-sucrose, 30 mcg/0.3 mL 01/05/2023 completed Christian Iraheta MD [address] [place] [address],[address], [address], [facility] 01/25/2023 10:20:48 pneumococcal polysaccharide PPV23 07/17/2020 completed Christian Iraheta MD [address] [place] [address],[address], [address], [facility] 01/25/2023 10:20:48 Tdap 07/17/2020 completed Christian Iraheta MD [address] [place] [address],[address], [address], [facility] 01/25/2023 10:20:48 Td (adult), 5 Lf tetanus toxoid, preservative free, adsorbed 12/31/2009 completed Christian Iraheta MD [address] [place] [address],[address], [address], [facility] 01/25/2023 10:20:48 influenza, injectable, quadrivalent, preservative free 12/14/2018 completed Christian Iraheta MD [address] [place] [address],[address], [address], [facility] 01/25/2023 10:20:48 Past Encounters Encounter ID Performer Location Encounter Start Date Encounter Closed Date Diagnosis/Indication [id number] MD ABDULAZIZ [facility] [address] [place] [address] 01/25/2023 10:06:31 02/01/2023 15:57:31 Heriberto hematuria Health Concerns Section Related Observation LastModified by Organization Detai ls LastModified Time None Recorded Concern Status LastModified by Organization Details LastModified Time None Recorded Advance Directives Directive None Recorded Payers Encounter Date Sequence Insurance Name Policy Number Policy Curtis Covered Member ID Curtis Member ID Guarantor Name 01/25/2023 1 [id number] Slim Washington [id number] Slim Washington Notes Date Note Type Note Provider Name and Address Organization Details Recorded Time 01/25/2023 text/html HPI Notes: 67 YO M HERE FOR EPISODIC HEMATURIA. HE REPORTS PASSING SMALL CLOTS IN DECEMBER. [facility] TODAY SHOWS TRACE RBC. FATHER HAD BLADDER CANCER .VOIDING WELL. NO BLEEDING PROBLEMS Christian Iraheta MD [address], [place], [address], [facility] 01/28/2023 16:30:29
--- OUTSIDE RECORDS SUMMARY | 2023-03-23 09:49 | XMS_ITS ---
Author Name Unknown Organization [facility] Address [address] [place] [address] Care Team Providers Care Consumer Sales Representative Name Role Phone Unavailable Unavailable Unavailable Surgery Details Not on file Complications Check Surgery Details section. Procedure Estimated Blood Loss Check Surgery Details section. Procedure Findings Check Surgery Details section. Procedure Specimens Taken Check Surgery Details section.
--- OUTSIDE RECORDS SUMMARY | 2023-03-23 09:50 | XMS_ITS | Encounter Summary ---
Author Name Unknown Organization [facility] Address [address] [place] [address] Care Team Providers Care Web Content Producer Name Role Phone Elsewhere, Pcp Primary Care Provider Unavailabl e Reason for Visit * Outpatient (Routine) - Closed Specialty Diagnoses / Procedures Referred By Isiah milligan Referred To Contact Colon and Rectal Surgery Diagnoses Fissure Anal Hemorrhoids External Varsha Andrews M.D. [address] [place] [address] [facility] Referral ID Status Reason Start Date Expiration Date Visits Re quested Visits Authorized [id number] Closed 02/15/2023 02/15/2024 1 1 Encounter Details Date Type Department Care Team (Latest Contact Info) Description 02/21/2023 8:30 AM BUYER INTERNSHIP Comprehensive Visit Division of Colon and Rectal Surgery in [place], [place] [address] [place] [phone] Rishi Edward, MORENA, C.N.P., M.S. [address] [place] [phone] Fissure Anal (Primary Dx); Hemorrhoids External Social History Tobacco Use Types Packs/Day Years [...] AM CDT documented as of this encounter Progress Notes * Rishi Edward, MORENA, C.N.P., M.S. - 02/21/2023 8:30 AM CST SUBJECTIVE CHIEF COMPLAINT / REASON FOR VISIT Slim Washington is a 67 y.o. male who presents for evaluation of anal pain. HISTORY OF PRESENT ILLNESS Mr. Washington is a pleasant 67-year-old gentleman who returns to the anorectal surgery Clinic today forevaluation of new onset anal pain in the setting of a history of anal fissure. Mr. Washington was seen by myself in June of 2022 where he was diagnosed with an anal fissure in the posterior midline position. He underwent an examination under anesthesia with Botox injection on July [address] Lozoya. He actually did relatively well after this and were had no significant symptoms up until approximately 1 week ago. Mr. Washington states that starting approximately 2 weeks ago he started to experience severe pain around the anus. He has shooting pain down his legs as well as a dull ache in the anal area. This is certainly worse with bowel movements. This will sometimes keep him up at night as well. He endorses mild blood on the toilet paper but otherwise no significant bleeding. He has been using diltiazem and completing Sitz baths on a daily basis. He also takes MiraLax daily. The following portions of the patient's history were reviewed and updated as appropriate: allergies, current medications, family history, medical history, social history, surgical history, and problem list. OBJECTIVE PHYSICAL EXAM Constitutional Appearance: Normal appearance. Neurological General: No focal deficit present. Mental Status: He is alert and oriented to person, place, and time. Psychiatric Mood and Affect: Mood normal. Behavior: Behavior normal. Rectum: Rectal examination was performed with the patient in the prone bobbi- knife position with NUBIA Hameed present. External evaluation reveals 2 moderately-sized and inflamed anal tags in the posterior midline position with associated hypergranulated tissue. 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 The exam was somewhat limited due to patient's pain. No other abnormalities. ASSESSMENT / PLAN #1 Hemorrhoids External #2 Fissure Anal The patient was listed for surgery on March 23, 2023 Surgeon: Dr. Kennedy Procedure: Examination under anesthesia with Botox injection, possible anal tag removal Consent form completed Does the patient have Crohn's disease: No Fistula case: no Position for surgery: Supine position (coccyx is at 6 o'clock) Picture in QREADS available: no The risks, benefits, and alternatives to the planned procedure were discussed in detail, including the risk of exposure to COVID-19 within the facility. All questions pertaining to the procedure and these risks were answered and the patient agreed to proceed. 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 He stated last time during his examination under anesthesia he experience headaches for several days following. I stated that I would note this in his chart but he should also notify anesthesia when he reports for his procedure on the . I explained to him that we will complete a repeat Botox injection with possible anal tag removal. This will largely be dependent on what Dr. Kennedy feels would be beneficial. The skin tags may be irritating in aggravating the current fissure so removal could be beneficial but this will be left up to the surgeon. He verbalized understanding and has no further questions. There is no bowel prep or skin prep for anorectal surgery. The adult fasting guidelines were reviewed. Medications were reviewed. All questions were answered. Patient was given my contact information. R INTERNSHIP documented in this encounter Plan of Treatment Scheduled Procedures Name Priority Associated Diagnoses Date/Ti me EXAMINATION UNDER ANESTHESIA ANORECTAL Fissure Anal Hemorrhoids External 03/23/2023 2:14 PM BUYER INTERNSHIP INJECTION BOTOX - INTERNAL ANAL SPHINCTER Fissure Anal Hemorrhoids External 03/23/2023 2:14 PM BUYER INTERNSHIP EXCISION SKIN TAG ANAL Fissure Anal Hemorrhoids External 03/23/2023 2:14 PM BUYER INTERNSHIP documented as of this encounter Visit Diagnoses Diagnosis Fissure Anal- Primary Hemorrhoids External documented in this encounter Care Teams Web Content Producer Relationship Specialty Start Date End Date Elsewhere, Pcp PCP - General Internal Medicine 07/05/22 documented as of this encounter
--- OUTSIDE RECORDS SUMMARY | 2023-03-23 09:50 | XMS_ITS | Encounter Summary ---
Author Name Unknown Organization [facility] Address [address] [place] [address] Care Team Providers Care Combat Systems Engineer Name Role Phone Elsewhere, Pcp Primary Care Provider Unavailabl e Reason for Referral * Outpatient (Routine) - Closed Specialty Diagnoses / Procedures Referred By Isiah milligan Referred To Contact Colon and Rectal Surgery Rishi Edward APRN C.N.P., M.S. [address] [place] [phone] [facility] Referral ID Status Reason Start Date Expiration Date Visits Re quested Visits Authorized [id number] Closed 03/13/2023 03/12/2026 1 1 ORTHOPEDIST Encounter Details Date Type Department Care Team (Late st Contact Info) Description 03/13/2023 Orders Only Division of Colon and Rectal Surgery in [place], [place] [address] [place] [phone] Rishi Edward APRN, C.N.P., M.S. [address] [place] [phone] Social History Tobacco Use Types Packs/Day Years [...] your living situation today? I have a [facility] place to live 09/30/2022 Sex and Gender Information Value Date Recorded Sex Assigned at Male 09/30/2022 4:37 AM CDT Gender Identity Male 09/30/2022 4:37 AM CDT Sexual Orientation Straight 09/30/2022 4: 37 AM CDT documented as of this encounter Plan of Treatment Scheduled Procedures Name Priority Associated Diagnoses Date/Ti me EXAMINATION UNDER ANESTHESIA ANORECTAL Fissure Anal Hemorrhoids External 03/23/2023 2:14 PM FOOT ORTHOPEDIST INJECTION BOTOX - INTERNAL ANAL SPHINCTER Fissure Anal Hemorrhoids External 03/23/2023 2:14 PM FOOT ORTHOPEDIST EXCISION SKIN TAG ANAL Fissure Anal Hemorrhoids External 03/23/2023 2:14 PM FOOT ORTHOPEDIST Scheduled Referrals Name Type Priority Associated Diagnoses Orde r Schedule Colon and Rectal Surgery office visit (clinic) Outpatient Referral Routine Expected: 03/13/2023 (Approximate), Expires: 06/11/2024 documented as of this encounter Visit Diagnoses Not on filedocumented in this encounter Care Teams Combat Systems Engineer Relationship Specialty Start Date End Date Elsewhere, Pcp PCP - General Internal Medicine 07/05/22 documented as of this encounter
--- OUTSIDE RECORDS SUMMARY | 2023-03-23 09:50 | XMS_ITS | Encounter Summary ---
Author Name Unknown Organization [facility] Address [address] [place] [address] Care Team Providers Care Commercial Account Officer Name Role Phone Elsewhere, Pcp Primary Care Provider Unavailabl e Reason for Visit * Reason Onset Date Comments Constipated/bloating 07/06/2022 Encounter Details Date Type Department Care Team (Latest Contact Info) Description 07/06/2022 Clinical Communication Division of Colon and Rectal Surgery in [place], [place] [address] [place] [phone] Rishi Edward, INVOICE MACHINE OPERATOR, C.N.P., M.S. [address] [place] [phone] Constipated/bloatin g Social History Tobacco Use Types Packs/Day Years Used Date Smoking Tobacco: Never Smokeless Tobacco: Never Nutrition Answer Date Recorded Nutrition: EVOO Fat Source Unknown 05/12 Nutrition: Servings of Fruits/Vegetables per Day Not on file 05/12/2022 Dental Answer Date Recorded Dental: Regular Dentist Unknown 05/13/19 Sex and Gender Information Value Date Recorded Sex Assigned at Male 09/30/2022 4:37 AM CDT Gender Identity Male 09/30/2022 4:37 AM CDT Sexual Orientation Straight 09/30/2022 4: 37 AM CDT documented as of this encounter Miscellaneous Notes * Telephone Encounter - Isha De La Cruz - 07/06/2022 8:55 AM CDT - Communication preference (portal or call): Phone Summary of Call: Patient had Botox yesterday. Today he is constipated, bloated, and having a lot ofpain and pain. He has tried MiraLAX and Tylenol, and it doesn't seem to be helping. [phone] documented in this encounter Plan of Treatment Scheduled Procedures Name Priority Associated Diagnoses Date/Ti me EXAMINATION UNDER ANESTHESIA ANORECTAL Fissure Anal Hemorrhoids External 03/23/2023 2:14 PM HAND MOLDER AND CASTER INJECTION BOTOX - INTERNAL ANAL SPHINCTER Fissure Anal Hemorrhoids External 03/23/2023 2:14 PM HAND MOLDER AND CASTER EXCISION SKIN TAG ANAL Fissure Anal Hemorrhoids External 03/23/2023 2:14 PM HAND MOLDER AND CASTER documented as of this encounter Visit Diagnoses Not on filedocumented in this encounter Care Teams Commercial Account Officer Relationship Specialty Start Date End Date Elsewhere, Pcp PCP - General Internal Medicine 07/05/22 documented as of this encounter
--- OUTSIDE RECORDS SUMMARY | 2023-03-23 09:50 | XMS_ITS | Encounter Summary ---
Author Name Unknown Organization [facility] Address [address] [place] [address] Care Team Providers Care Tinware Lithograph Press Operator Name Role Phone Elsewhere, Pcp Primary Care Provider Unavailabl e Reason for Visit * Reason Onset Date Comments Pre-visit Intake 02/20/2023 Encounter Details Date Type Department Care Team (Latest Contact Info) Description 02/20/2023 2:45 PM GLOST TILE SHADER Clinical Communication Virtual Review in [place], [place] 200 [place], [place] [id number] Pre-visit Intake Social History Tobacco Use Types Packs/Day Years [...] your living situation today? I have a [facility] place to live 09/30/2022 Sex and Gender Information Value Date Recorded Sex Assigned at Male 09/30/2022 4:37 AM CDT Gender Identity Male 09/30/2022 4:37 AM CDT Sexual Orientation Straight 09/30/2022 4: 37 AM CDT documented as of this encounter Plan of Treatment Scheduled Procedures Name Priority Associated Diagnoses Date/Ti me EXAMINATION UNDER ANESTHESIA ANORECTAL Fissure Anal Hemorrhoids External 03/23/2023 2:14 PM GLOST TILE SHADER INJECTION BOTOX - INTERNAL ANAL SPHINCTER Fissure Anal Hemorrhoids External 03/23/2023 2:14 PM GLOST TILE SHADER EXCISION SKIN TAG ANAL Fissure Anal Hemorrhoids External 03/23/2023 2:14 PM GLOST TILE SHADER documented as of this encounter Visit Diagnoses Not on filedocumented in this encounter Care Teams Tinware Lithograph Press Operator Relationship Specialty Start Date End Date Elsewhere, Pcp PCP - General Internal Medicine 07/05/22 documented as of this encounter
--- OUTSIDE RECORDS SUMMARY | 2023-03-23 09:50 | XMS_ITS | Encounter Summary ---
Author Name Unknown Organization [facility] Address [address] [place] [address] Care Team Providers Care Pipefitter Helper Name Role Phone Elsewhere, Pcp Primary Care Provider Unavailabl e Encounter Details Date Type Department Care Team (Late st Contact Info) Description 03/02/2023 Orders Only Division of Colon and Rectal Surgery in [place], [place] [address] [place] [phone] Rishi Edward, MORENA, C.N.P., M.S. [address] [place] [phone] Social History Tobacco Use Types Packs/Day Years [...] Fissure Anal Hemorrhoids External 03/23/2023 2:14 PM COMPUTER REPAIR TECHNICIAN INJECTION BOTOX - INTERNAL ANAL SPHINCTER Fissure Anal Hemorrhoids External 03/23/2023 2:14 PM COMPUTER REPAIR TECHNICIAN EXCISION SKIN TAG ANAL Fissure Anal Hemorrhoids External 03/23/2023 2:14 PM COMPUTER REPAIR TECHNICIAN documented as of this encounter Visit Diagnoses Not on filedocumented in this encounter Care Teams Pipefitter Helper Relationship Specialty Start Date End Date Elsewhere, Pcp PCP - General Internal Medicine 07/05/22 documented as of this encounter
--- OUTSIDE RECORDS SUMMARY | 2023-03-23 09:50 | XMS_ITS | Encounter Summary ---
Author Name Unknown Organization [facility] Address [address] [place] [address] Care Team Providers Care Teller Name Role Phone Elsewhere, Pcp Primary Care Provider Unavailabl e Reason for Visit * Reason Onset Date Comments Recurrent symptoms 02/15/2023 Encounter Details Date Type Department Care Team (Latest Contact Info) Description 02/15/2023 Clinical Communication Division of Colon and Rectal Surgery in [place], [place] [address] [place] [phone] Rishi Edward, MORENA, C.N.P., M.S. [address] [place] [phone] Recurrent symptoms Social History Tobacco Use Types Packs/Day Years Used Date Smoking Tobacco: Never Smokeless Tobacco: Never Humiliation, Afraid, Rape, and Kick questionnair e [...] your living situation today? I have a [facility] place to live 09/30/2022 Sex and Gender Information Value Date Recorded Sex Assigned at Male 09/30/2022 4:37 AM CDT Gender Identity Male 09/30/2022 4:37 AM CDT Sexual Orientation Straight 09/30/2022 4: 37 AM CDT documented as of this encounter Plan of Treatment Scheduled Procedures Name Priority Associated Diagnoses Date/Ti me EXAMINATION UNDER ANESTHESIA ANORECTAL Fissure Anal Hemorrhoids External 03/23/2023 2:14 PM CADD INSTRUCTOR INJECTION BOTOX - INTERNAL ANAL SPHINCTER Fissure Anal Hemorrhoids External 03/23/2023 2:14 PM CADD INSTRUCTOR EXCISION SKIN TAG ANAL Fissure Anal Hemorrhoids External 03/23/2023 2:14 PM CADD INSTRUCTOR documented as of this encounter Visit Diagnoses Not on filedocumented in this encounter Care Teams Teller Relationship Specialty Start Date End Date Elsewhere, Pcp PCP - General Internal Medicine 07/05/22 documented as of this encounter
--- OUTSIDE RECORDS SUMMARY | 2023-03-23 09:50 | XMS_ITS | Encounter Summary ---
Author Name Unknown Organization [facility] Address [address] [place] [address] Care Team Providers Care Director Search Name Role Phone Elsewhere, Pcp Primary Care Provider Unavailabl e Reason for Visit * Reason Onset Date Comments Follow-up Orders 09/23/2022 Encounter Details Date Type Department Care Team (Latest Contact Info) Description 09/23/2022 Clinical Communication Division of Colon and Rectal Surgery in [place], [place] [address] [place] [phone] Delicia Lozoya M.D. [address] [place] [phone] Follow-up Orders Social History Tobacco Use Types Packs/Day Years [...] your living situation today? I have a [facility] place to live 09/30/2022 Sex and Gender Information Value Date Recorded Sex Assigned at Male 09/30/2022 4:37 AM CDT Gender Identity Male 09/30/2022 4:37 AM CDT Sexual Orientation Straight 09/30/2022 4: 37 AM CDT documented as of this encounter Plan of Treatment Scheduled Procedures Name Priority Associated Diagnoses Date/Ti me EXAMINATION UNDER ANESTHESIA ANORECTAL Fissure Anal Hemorrhoids External 03/23/2023 2:14 PM ELEMENTARY SUMMER SCHOOL TEACHER INJECTION BOTOX - INTERNAL ANAL SPHINCTER Fissure Anal Hemorrhoids External 03/23/2023 2:14 PM ELEMENTARY SUMMER SCHOOL TEACHER EXCISION SKIN TAG ANAL Fissure Anal Hemorrhoids External 03/23/2023 2:14 PM ELEMENTARY SUMMER SCHOOL TEACHER documented as of this encounter Visit Diagnoses Not on filedocumented in this encounter Care Teams Director Search Relationship Specialty Start Date End Date Elsewhere, Pcp PCP - General Internal Medicine 07/05/22 documented as of this encounter
--- OUTSIDE RECORDS SUMMARY | 2023-03-23 09:50 | XMS_ITS | Encounter Summary ---
Author Name Unknown Organization [facility] Address [address] [place] [address] Care Team Providers Care Senior Embedded Software Engineer Name Role Phone Elsewhere, Pcp Primary Care Provider Unavailabl e Reason for Visit * Reason Onset Date Comments After Visit Question 07/06/2022 Encounter Details Date Type Department Care Team (Latest Contact Info) Description 07/06/2022 Clinical Communication Division of Colon and Rectal Surgery in [place], [place] [address] [place] [phone] Rishi Edward, MORENA, C.N.P., M.S. [address] [place] [phone] After Visit Question Social History Tobacco Use Types Packs/Day Years [...] encounter Miscellaneous Notes * Telephone Encounter - ePg Emery R.N. - 07/06/2022 1:21 PM CDT Information Discussed Return phone call to Slim [place], a 67 y.o. male who had an EUA on 07/05/2022 for Botox injection by Dr. Patrick Lozoya. He was concerned that the Exparel may have been causing him to be constipated and bloating. He has had a bowel movement since and did pass gas at that time so feels better. Reviewed thatit takes 2-3 weeks for Botox to take affect. He will continue to take MiraLAX as prescribed by careprovider. He will contact us with any other concerns. PLAN Disposition/Recommendation: self-care is appropriate at this time, patient encouraged to call back with questions Information/Education: patient/caller able to teach back Caller agreeable to plan of care: yes The following references were used: nursing clinical judgement documented in this encounter Plan of Treatment Scheduled Procedures Name Priority Associated Diagnoses Date/Ti me EXAMINATION UNDER ANESTHESIA ANORECTAL Fissure Anal Hemorrhoids External 03/23/2023 2:14 PM HEAD WRESTLING COACH INJECTION BOTOX - INTERNAL ANAL SPHINCTER Fissure Anal Hemorrhoids External 03/23/2023 2:14 PM HEAD WRESTLING COACH EXCISION SKIN TAG ANAL Fissure Anal Hemorrhoids External 03/23/2023 2:14 PM HEAD WRESTLING COACH documented as of this encounter Visit Diagnoses Not on filedocumented in this encounter Care Teams Senior Embedded Software Engineer Relationship Specialty Start Date End Date Elsewhere, Pcp PCP - General Internal Medicine 07/05/22 documented as of this encounter
--- OUTSIDE RECORDS SUMMARY | 2023-03-23 09:50 | XMS_ITS | Encounter Summary ---
Author Name Unknown Organization [facility] Address [address] [place] [address] Care Team Providers Care Plate Shop Helper Name Role Phone Elsewhere, Pcp Primary Care Provider Unavailabl e Encounter Details Date Type Department Care Team (Late st Contact Info) Description 02/16/2023 Orders Only Division of Colon and Rectal Surgery in [place], [place] [address] [place] [phone] Rishi Edward, MORENA, C.N.P., M.S. [address] [place] [phone] Social History Tobacco Use Types Packs/Day Years [...] your living situation today? I have a [facility] place to live 09/30/2022 Sex and Gender Information Value Date Recorded Sex Assigned at Male 09/30/2022 4:37 AM CDT Gender Identity Male 09/30/2022 4:37 AM CDT Sexual Orientation Straight 09/30/2022 4: 37 AM CDT documented as of this encounter Plan of Treatment Scheduled Procedures Name Priority Associated Diagnoses Date/Ti me EXAMINATION UNDER ANESTHESIA ANORECTAL Fissure Anal Hemorrhoids External 03/23/2023 2:14 PM LABEL MACHINE OPERATOR INJECTION BOTOX - INTERNAL ANAL SPHINCTER Fissure Anal Hemorrhoids External 03/23/2023 2:14 PM LABEL MACHINE OPERATOR EXCISION SKIN TAG ANAL Fissure Anal Hemorrhoids External 03/23/2023 2:14 PM LABEL MACHINE OPERATOR documented as of this encounter Visit Diagnoses Not on filedocumented in this encounter Care Teams Plate Shop Helper Relationship Specialty Start Date End Date Elsewhere, Pcp PCP - General Internal Medicine 07/05/22 documented as of this encounter
--- OUTSIDE RECORDS SUMMARY | 2023-03-23 09:50 | XMS_ITS | Encounter Summary ---
Author Name Unknown Organization [facility] Address [address] [place] [address] Care Team Providers Care Sat Math Tutor Name Role Phone Elsewhere, Pcp Primary Care Provider Unavailabl e Reason for Visit * Auth/Cert (Routine) Specialty Diagnoses / Procedures Referred By Isiah t Referred To Contact Diagnoses Fissure Anal Fissure Anal [K60.2] Procedures EXAMINATION UNDER ANESTHESIA ANORECTAL INJECTION BOTOX - INTERNAL ANAL SPHINCTER Referral ID Status Reason Start Date Expiration Date Visits Re quested Visits Authorized [id number] 1 1 Encounter Details Date Type Department Care Team (Late st Contact Info) Description 07/05/2022 12:39 PM CDT Anesthesia Event Outpatient Procedure Center in [place], [place] [address] [place] [phone] Vinny Pulido APRN, [place], MNA [address] [place] [phone] Polo Shannon M.D. [address] [place] [phone] Anesthesia Record Procedure Summary Procedure Name Responsible Anesthesiologist Anesthesia Start Time Anesthesia Stop Time EXAMINATION UNDER ANESTHESIA ANORECTAL. Vinny Pulido APRN, CRNA, [place] 07/05/22 1239 07/05/22 1256 Events Date Time Event Comment 07/05/2022 1053 1225 An Induction 1227 An Intubation 1229 Turnover to Proceduralist 1237 Proc Start 1239 An Start Machine/Equipme nt Checked Infection Precautions Followed Procedure/Site Verified NPO Status Verified Supine Standard ASA Monitors Applied 1241 Proc Fin 1249 Turnover to ANE Staff 1249 Airway Removal Criteria Met 1249 Extubation/Airway Removed 1249 an stop data 1256 An End I completed my handoff to the receiving staff during which we 1. Identified the patient 2. Identified the responsible provider 3. Reviewed the pertinent medical history 4. Discussed the surgical course 5. Reviewed intra-op anesthesia management and issues during anesthesia 6. Set expectations for post-procedure period 7. Allowed opportunity for questions and acknowledgement of understanding. Meds Name Total ondansetron 4 mg/2 mL injection 4 mg propofol 10 mg/mL 200 mg propofol 10 mg/mL 156.66 mg fentaNYL (SUBLIMAZE) PF injection 50 mcg /mL 100 mcg dexAMETHasone (DECADRON) injection 4 mg/ mL 4 mg lidocaine 2% (mg) injection 60 mg caffeine-sodium benzoate 250 mg (125 mg caffeine)/mL injection 250 mg lactated ringers 800 mL * Agents No agents on file. * Blood No blood administrations on file. Lines, Drains, and Airways Type Details Placement Removal (RETIRED- use LDA Wound) Puncture 07/05/22; Rectum 07/05/22 0000 by Ani Hollis M.S.N., M.H.A., R.N. Peripheral IV Placement Date: 07/05/22; Placement Time: 1107; Catheter Size: 22 G; Orientation: Anterior, Left, Lower; Location: Forearm; Site Prep: Chlorhexidine (Preferred); Inserted by: SP; Insertion Attempts: 1; Removal Date: 07/05/22; Removal Time: 1338; Removal Reason: Patient discharged 07/05/22 1107 by Isha Medina, R.NBill 07/05/22 1338 by Isha Medina R.N. Supraglottic Airway Placement Date: 07/05/22; Placement Time: 1227 (created via procedure documentation); Mask Ventilation: Easy mask; Brand: Unique; Size: 5; Removal Date: 07/05/22; Removal Time: 1249 07/05/22 1227 by Vinny Pulido APRN, CRNA, MNA 07/05/22 1249 by Vinny Pulido APRN, CRNA, SARTHAK documented in this encounter Social History Tobacco Use Types Packs/Day Years [...] AM CDT documented as of this encounter OR Notes * Anesthesia Postprocedure Evaluation - Marvin Escalera APRN, CRNA, DNAP - 07/05/2022 1:00 PM CDT Patient: Slim Washington Procedure Summary Date: 07/05/22 Room / Location: [place] [id number] / [facility] in [place], [place] Anesthesia Start: 1239 Anesthesia Stop: 1256 Procedures: EXAMINATION UNDER ANESTHESIA ANORECTAL. INJECTION BOTOX, INTERNAL ANAL SPHINCTER. Diagnosis: Fissure Anal (Fissure Anal [K60.2].) Surgeons: Delicia Lozoya M.D. Responsible Provider: Vinny Pulido APRN, CRNA, MNA Anesthesia Type: general ASA Status: 2 Anesthesia Type: general Last vitals Vitals Value Taken Time BP 107/79 07/05/22 1259 Temp 36.5 ??C 07/05/22 1259 Pulse 58 07/05/22 1300 Resp 8 07/05/22 1259 SpO2 96 % 07/05/22 1300 Vitals shown include unvalidated device data. Please reference Vitals flowsheet for most recent vital signs. Anesthesia Post Evaluation Patient Disposition: dismissal Cardiovascular status: hemodynamics (HR & BP) acceptable Respiratory status: patent airway with spontaneous effort Temperature: normothermic Oxygen requirements: room air Level of consciousness: awake Pain score: pain adequately controlled and/or at baseline Post Op nausea/vomiting: none Hydration status: euvolemic * Anesthesia Procedure Notes - Vinny Pulido APRN, CRNA, MNA - 07/05/2022 12:39 PM CDTAssociated Order(s): Airway Airway Date/Time: 07/05/2022 12:27 PM Performed by: Vinny Pulido APRN, CRNA, MNA Authorized by: Vinny Pulido APRN, CRNA, MNA Patient location during procedure: OR / Procedure Area PROCEDURE DETAILS: Mask difficulty assessment: easy mask Final airway type: supraglottic airway Laryngeal Manipulation: no Supraglottic device: LMA unique Supraglottic device size: 5 Adult device size: 5 Number of attempt to successful placement: 1 Airway confirmation: bilateral breath sounds, positive ETCO2 and bilateral chest rise Other previous techniques attempted: none PRE PROCEDURE DETAILS: Pre evaluation for airway management: procedure Urgency: elective Preop assessment of probable difficulty: no difficulty anticipated Preoxygenation: bag valve mask SEDATION / ANESTHESIA Anesthesia method: anesthesia POST PROCEDURE DETAILS: Procedure outcome: successful Airway event: no complications * Anesthesia Preprocedure Evaluation - Polo Shannon M.D. - 07/05/2022 10:47 AM CDT Preprocedure Anesthesia & H&P Assessment Procedure Summary Date/Time: 07/05/22 1236 Procedures: EXAMINATION UNDER ANESTHESIA ANORECTAL. INJECTION BOTOX, INTERNAL ANAL SPHINCTER. Diagnosis: Fissure Anal [K60.2] Pre-op diagnosis: Fissure Anal [K60.2]. Location: [address] in [place], [place] Surgeons: Delicia Lozoya M.D. Pertinent components of the patient's history including current problem list, medical history, surgical history, family history, social history, medications and allergies were reviewed. Present illness and pre-op diagnosis were confirmed. The planned surgery / procedure was verified with the patient / legal guardian. The patient's general health condition remains unchanged RELEVANT COMORBID CONDITIONS No relevant active problems OBJECTIVE PHYSICAL EXAMINATION Airway (HEENT) Mallampati: II TM Distance: >3 FB Neck ROM: Full Mouth Opening: >3 cm Upper Lip Bite Test Class: I Cardiovascular Rhythm: Regular Rate: Normal Cardiovascular Assessment: cardiovascular normal Functional Capacity: >4 METS Pulmonary Pulmonary Assessment: Clear General / Constitutional Constitutional Assessment: Normal General State of Health:: healthy appearing and calm ASSESSMENT / PLAN ANESTHESIA PLAN ASA: 2 Anesthesia Plan: general Patient seen and allergies reviewed, anesthesia plan and risks discussed directly with patient /legal guardian or through an forest worker. Risks/Benefits/Alternatives of Blood transfusion discussed with patient / legal guardian, includingan opportunity to ask questions and/or decline some or all transfusion therapies. The patient / legal guardian consented to the use of all blood products, as deemed medically necessary Approval to Proceed: approved for anesthesia documented in this encounter Plan of Treatment Scheduled Procedures Name Priority Associated Diagnoses Date/Ti me EXAMINATION UNDER ANESTHESIA ANORECTAL Fissure Anal Hemorrhoids External 03/23/2023 2:14 PM TOP STEEP TENDER INJECTION BOTOX - INTERNAL ANAL SPHINCTER Fissure Anal Hemorrhoids External 03/23/2023 2:14 PM TOP STEEP TENDER EXCISION SKIN TAG ANAL Fissure Anal Hemorrhoids External 03/23/2023 2:14 PM TOP STEEP TENDER documented as of this encounter Procedures Procedure Name Priority Date/Time Associated Diagnosis Comments LDA ANE NON-SURGICAL AIRWAY Routine 07/05/2022 12:27 PM CDT documented in this encounter Results * LDA ANE NON-SURGICAL AIRWAY (07/05/2022 12:27 PM CDT) Narrative Vinny Pulido APRN, CRNA, MNA - 07/05/2022 12:27 PM CDT Vinny Pulido APRN, CRNA, MNA ? 07/05/2022 12:40 PM Airway Date/Time: 07/05/2022 12:27 PM Performed by: Vinny Pulido APRN, CRNA, MNA Authorized by: Vinny Pulido APRN, CRNA, MNA ?? Patient location during procedure: OR / Procedure Area PROCEDURE DETAILS: Mask difficulty assessment: easy mask Final airway type: supraglottic airway Laryngeal Manipulation: no ?? Supraglottic device: LMA unique ?? Supraglottic device size: 5 ?? Adult device size: 5 Number of attempt to successful placement: 1 Airway confirmation: bilateral breath sounds, positive ETCO2 and bilateral chest rise Other previous techniques attempted: none PRE PROCEDURE DETAILS: Pre evaluation for airway management: procedure Urgency: elective Preop assessment of probable difficulty: no difficulty anticipated Preoxygenation: bag valve mask SEDATION / ANESTHESIA Anesthesia method: anesthesia POST PROCEDURE DETAILS: ? Procedure outcome: successful ?? Airway event: no complications Vinny Pulido MUTUEL MACHINE OPERATOR, AQUATICS INSTRUCTOR, MNA ANESTHE MARISA ORDERABLES documented in this encounter Visit Diagnoses Not on filedocumented in this encounter Administered Medications Inactive Administered Medications - up to 3 most recent administrations Medication Order MAR Action Action Date Dose Rate Site caffeine-sodium benzoate injection intravenous, As needed, Starting on Mon07/05/22 at 1242, Anesthesia Intra-op Given 07/05/2022 12:42 PM CDT 250 mg dexAMETHasone injection (DECADRON) intravenous, As needed, Starting on Mon07/05/22 at 1233, Anesthesia Intra-op Given 07/05/2022 12:33 PM CDT 4 mg fentaNYL injection (SUBLIMAZE) intravenous, As needed, Starting on Mon07/05/22 at 1227, Anesthesia Intra-op Given 07/05/2022 12:27 PM CDT 100 mcg lactated ringers 20 mL/hr, intravenous, Continuous, Starting on Mon07/05/22 at 1115 Continued from OR 07/05/2022 1:09 PM CDT 20 mL/hr 20 mL/hr Rate/Dose Verify 07/05/2022 12:39 PM CDT 20 mL/ hr Restarted 07/05/2022 12:26 PM CDT lidocaine (PF) (cardiac) injection intravenous, As needed, Starting on Mon07/05/22 at 1229, Anesthesia Intra-op Given 07/05/2022 12:29 PM CDT 60 mg ondansetron (PF) injection (ZOFRAN) intravenous, As needed, Starting on Mon07/05/22 at 1227, Anesthesia Intra-op Given 07/05/2022 12:27 PM CDT 4 mg propofol 10 mg/mL infusion (DIPRIVAN) intravenous, As needed, Starting on Mon07/05/22 at 1227, Anesthesia Intra-op Given 07/05/2022 12:27 PM CDT 200 mg propofol 10 mg/mL infusion (DIPRIVAN) intravenous, Continuous Infusion: Per Instructions PRN, Starting on Mon07/05/22 at 1233, Anesthesia Intra-op Rate/Dose Change 07/05/2022 12:38 PM CDT 75 mcg/kg/min 33.57 mL/hr New Bag 07/05/2022 12:33 PM CDT 150 mcg/kg/min 67.14 mL /hr documented in this encounter Care Teams Sat Math Tutor Relationship Specialty Start Date End Date Elsewhere, Pcp PCP - General Internal Medicine 07/05/22 documented as of this encounter
--- OUTSIDE RECORDS SUMMARY | 2023-03-23 09:50 | XMS_ITS | Encounter Summary ---
Author Name Unknown Organization [facility] Address [address] [place] [address] Care Team Providers Care Service Sprinkler Helper Name Role Phone Elsewhere, Pcp Primary Care Provider Unavailabl e Encounter Details Date Type Department Care Team (Late st Contact Info) Description 07/07/2022 Abstract [facility] [address] [place] [phone] Provider, Historical Social History Tobacco Use Types Packs/Day Years [...] Fissure Anal Hemorrhoids External 03/23/2023 2:14 PM DESK MAKER INJECTION BOTOX - INTERNAL ANAL SPHINCTER Fissure Anal Hemorrhoids External 03/23/2023 2:14 PM DESK MAKER EXCISION SKIN TAG ANAL Fissure Anal Hemorrhoids External 03/23/2023 2:14 PM DESK MAKER documented as of this encounter Visit Diagnoses Not on filedocumented in this encounter Care Teams Service Sprinkler Helper Relationship Specialty Start Date End Date Elsewhere, Pcp PCP - General Internal Medicine 07/05/22 documented as of this encounter
--- OUTSIDE RECORDS SUMMARY | 2023-03-23 09:50 | XMS_ITS | Encounter Summary ---
Author Name Unknown Organization [facility] Address [address] [place] [address] Care Team Providers Care Accounts Receivable Supervisor Name Role Phone Elsewhere, Pcp Primary Care Provider Unavailabl e Reason for Visit * Auth/Cert (Routine) Specialty Diagnoses / Procedures Referred By Isiah milligan Referred To Contact Diagnoses Fissure Anal Hemorrhoids External Fissure Anal [K60.2] Hemorrhoids External [K64.4] Procedures AR CHEMODENERV INTRNL ANAL SPHINCTER AR EXCISN EXTRNL PAPILLA ANUS SNGL AR INJECTION,ONABOTULINUMTOXINA EXAMINATION UNDER ANESTHESIA ANORECTAL INJECTION BOTOX - INTERNAL ANAL SPHINCTER EXCISION SKIN TAG ANAL Referral ID Status Reason Start Date Expiration Date Visits Re quested Visits Authorized [id number] 1 1 Encounter Details Date Type Department Care Team (Late st Contact Info) Description 03/23/2023 10:45 AM [facility] Hospital Encounter Outpatient Procedure Center in [place], [place] [address] [place] [phone] Av Kennedy M.D. [address] [place] [phone] Social History Tobacco Use Types Packs/Day Years [...] Fissure Anal Hemorrhoids External 03/23/2023 2:14 PM NOTCH GRINDER INJECTION BOTOX - INTERNAL ANAL SPHINCTER Fissure Anal Hemorrhoids External 03/23/2023 2:14 PM NOTCH GRINDER EXCISION SKIN TAG ANAL Fissure Anal Hemorrhoids External 03/23/2023 2:14 PM NOTCH GRINDER documented as of this encounter Visit Diagnoses Diagnosis Fissure Anal Hemorrhoids External documented in this encounter Admitting Diagnoses Diagnosis Fissure Anal Hemorrhoids External documented in this encounter Care Teams Accounts Receivable Supervisor Relationship Specialty Start Date End Date Elsewhere, Pcp PCP - General Internal Medicine 07/05/22 documented as of this encounter
--- OUTSIDE RECORDS SUMMARY | 2023-03-23 09:50 | XMS_ITS | Encounter Summary ---
Author Name Unknown Organization [facility] Address [address] [place] [id number] Care Team Providers Care Wet Washer Machine Name Role Phone Elsewhere, Pcp Primary Care Provider Unavailabl e Encounter Details Date Type Department Care Team (Late st Contact Info) Description 03/02/2023 Orders Only Division of Colon and Rectal Surgery in [place], [place] [address] [place] [phone] Rishi Edward, MORENA, C.N.P., M.S. [address] [place] [phone] Social History Tobacco Use Types Packs/Day Years [...] your living situation today? I have a [facility] place to live 09/30/2022 Sex and Gender Information Value Date Recorded Sex Assigned at Male 09/30/2022 4:37 AM CDT Gender Identity Male 09/30/2022 4:37 AM CDT Sexual Orientation Straight 09/30/2022 4: 37 AM CDT documented as of this encounter Plan of Treatment Scheduled Procedures Name Priority Associated Diagnoses Date/Ti me EXAMINATION UNDER ANESTHESIA ANORECTAL Fissure Anal Hemorrhoids External 03/23/2023 2:14 PM ADJUTANT GENERAL INJECTION BOTOX - INTERNAL ANAL SPHINCTER Fissure Anal Hemorrhoids External 03/23/2023 2:14 PM ADJUTANT GENERAL EXCISION SKIN TAG ANAL Fissure Anal Hemorrhoids External 03/23/2023 2:14 PM ADJUTANT GENERAL documented as of this encounter Visit Diagnoses Not on filedocumented in this encounter Care Teams Wet Washer Machine Relationship Specialty Start Date End Date Elsewhere, Pcp PCP - General Internal Medicine 07/05/22 documented as of this encounter
--- OUTSIDE RECORDS SUMMARY | 2023-03-23 09:50 | XMS_ITS | Encounter Summary ---
Author Name Unknown Organization [facility] Address [address] [place] [address] Care Team Providers Care Agency Service Representative Name Role Phone Elsewhere, Pcp Primary Care Provider Unavailabl e Reason for Referral * Outpatient (Routine) - Closed Specialty Diagnoses / Procedures Referred By Isiah milligan Referred To Contact Colon and Rectal Surgery Rishi Edward APRN C.N.P., M.S. [address] [place] [phone] [facility] Referral ID Status Reason Start Date Expiration Date Visits Re quested Visits Authorized [id number] Closed 09/23/2022 09/22/2025 1 1 Encounter Details Date Type Department Care Team (Late st Contact Info) Description 09/23/2022 Orders Only Division of Colon and Rectal Surgery in [place], [place] [address] [place] [phone] Rishi Edward APRN, C.N.P., M.S. [address] [place] [phone] Social History Tobacco Use Types Packs/Day Years [...] Fissure Anal Hemorrhoids External 03/23/2023 2:14 PM HOUSE ADMIN INJECTION BOTOX - INTERNAL ANAL SPHINCTER Fissure Anal Hemorrhoids External 03/23/2023 2:14 PM HOUSE ADMIN EXCISION SKIN TAG ANAL Fissure Anal Hemorrhoids External 03/23/2023 2:14 PM HOUSE ADMIN Scheduled Referrals Name Type Priority Associated Diagnoses Orde r Schedule Colon and Rectal Surgery office visit (clinic) Outpatient Referral Routine Expected: 09/23/2022 (Approximate), Expires: 12/25/2023 documented as of this encounter Visit Diagnoses Not on filedocumented in this encounter Care Teams Agency Service Representative Relationship Specialty Start Date End Date Elsewhere, Pcp PCP - General Internal Medicine 07/05/22 documented as of this encounter
--- OUTSIDE RECORDS SUMMARY | 2023-03-23 09:50 | XMS_ITS | Encounter Summary ---
Author Name Unknown Organization [facility] Address [address] [place] [address] Care Team Providers Care Faith Doctor Name Role Phone Elsewhere, Pcp Primary Care Provider Unavailabl e Reason for Referral * Outpatient (Routine) - Closed Specialty Diagnoses / Procedures Referred By Isiah milligan Referred To Contact Colon and Rectal Surgery Diagnoses Fissure Anal Hemorrhoids External Varsha Andrews M.D. [address] [place] [phone] [facility] Referral ID Status Reason Start Date Expiration Date Visits Re quested Visits Authorized [id number] Closed 02/15/2023 02/15/2024 1 1 R EQUIPMENT CAPTAIN Encounter Details Date Type Department Care Team (Late st Contact Info) Description 02/15/2023 [facility] [address] [place] [address] Varsha Andrews M.D. [address] [place] [phone] Fissure Anal (Primary Dx); Hemorrhoids External Social [...] your living situation today? I have a [facility] place to live 09/30/2022 Sex and Gender Information Value Date Recorded Sex Assigned at Male 09/30/2022 4:37 AM CDT Gender Identity Male 09/30/2022 4:37 AM CDT Sexual Orientation Straight 09/30/2022 4: 37 AM CDT documented as of this encounter Plan of Treatment Scheduled Procedures Name Priority Associated Diagnoses Date/Ti me EXAMINATION UNDER ANESTHESIA ANORECTAL Fissure Anal Hemorrhoids External 03/23/2023 2:14 PM MOTOR EQUIPMENT CAPTAIN INJECTION BOTOX - INTERNAL ANAL SPHINCTER Fissure Anal Hemorrhoids External 03/23/2023 2:14 PM MOTOR EQUIPMENT CAPTAIN EXCISION SKIN TAG ANAL Fissure Anal Hemorrhoids External 03/23/2023 2:14 PM MOTOR EQUIPMENT CAPTAIN Scheduled Referrals Name Type Priority Associated Diagnoses Orde r Schedule Colon & Rectal Surgery Referral Outpatient Referral Routine Fissure Anal Hemorrhoids External Expected: 02/15/2023 (Approximate), Expires: 05/16/2024 documented as of this encounter Visit Diagnoses Diagnosis Fissure Anal- Primary Hemorrhoids External documented in this encounter Care Teams Faith Doctor Relationship Specialty Start Date End Date Elsewhere, Pcp PCP - General Internal Medicine 07/05/22 documented as of this encounter
--- OUTSIDE RECORDS SUMMARY | 2023-03-23 09:50 | XMS_ITS | Encounter Summary ---
Author Name Unknown Organization [facility] Address [address] [place] [id number] Care Team Providers Care Time Study Observer Name Role Phone Elsewhere, Pcp Primary Care Provider Unavailabl e Reason for Visit * Outpatient (Routine) - Closed Specialty Diagnoses / Procedures Referred By Isiah milligan Referred To Contact Colon and Rectal Surgery Rishi Edward APRN, C.N.P., M.S. [address] [place] [phone] [facility] Referral ID Status Reason Start Date Expiration Date Visits Re quested Visits Authorized [id number] Closed 03/13/2023 03/12/2026 1 1 Encounter Details Date Type Department Care Team (Late st Contact Info) Description 03/17/2023 3:45 PM PURCHASING AND CLAIMS SUPERVISOR Virtual Visit Division of Colon and Rectal Surgery in [place], [place] [address] [place] [phone] Rishi Edward APRN, C.N.P., M.S. [address] [place] [phone] Fissure Anal (Primary Dx) Social History Tobacco Use Types Packs/Day Years [...] living situation today? I have a [facility] place to live 09/30/2022 Sex and Gender Information Value Date Recorded Sex Assigned at Male 09/30/2022 4:37 AM CDT Gender Identity Male 09/30/2022 4:37 AM CDT Sexual Orientation Straight 09/30/2022 4: 37 AM CDT documented as of this encounter Consult Notes * Rishi Edward APRN, C.N.P., M.S. - 03/17/2023 3:45 PM CST SUBJECTIVE CHIEF COMPLAINT / REASON FOR VISIT Slim Washington is a 67 y.o. male presenting in referral from Rishi Edward APRN, C.* for consultation in the evaluation of anal fissure. Consult conducted via telephone by Rishi Edward APRN, C.N.P., M.S. in [facility] to the patient in Patient's Home. HISTORY OF PRESENT ILLNESS Mr. Washington is a pleasant 67-year-old gentleman who I am speaking with today via the telephone with regard to an anal fissure. Mr. Washington is scheduled to undergo an examination under anesthesia for a Botox injection and possible anal tag removal with Dr. Kennedy on March 23. Mr. Washington States that he continues to have pain with bowel movements and he is having sometimes up to 7 bowel movements per day. He states that he stopped using caffeine over a week ago and he has not had as many anal spasms since that time. He is using diltiazem cream with lidocaine but wonders ifthe lidocaine is causing some burning irritation. He would just like to review his upcoming procedure and we have gone through a few further questions with regard to ongoing treatment for this fissure. The following portions of the patient's history were reviewed and updated as appropriate: allergies, current medications, family history, medical history, social history, surgical history, and problem list. ASSESSMENT / PLAN #1 Fissure Anal We reviewed the upcoming examination under anesthesia. I am going to send him a new diltiazem prescription without to lidocaine to see if that will decrease the burning he is experiencing. We discussed the preoperative instructions. He has no further questions or concerns A total of 20 minutes was spent in counseling and coordination of care. HASING AND CLAIMS SUPERVISOR documented in this encounter Plan of Treatment Scheduled Procedures Name Priority Associated Diagnoses Date/Ti me EXAMINATION UNDER ANESTHESIA ANORECTAL Fissure Anal Hemorrhoids External 03/23/2023 2:14 PM PURCHASING AND CLAIMS SUPERVISOR INJECTION BOTOX - INTERNAL ANAL SPHINCTER Fissure Anal Hemorrhoids External 03/23/2023 2:14 PM PURCHASING AND CLAIMS SUPERVISOR EXCISION SKIN TAG ANAL Fissure Anal Hemorrhoids External 03/23/2023 2:14 PM PURCHASING AND CLAIMS SUPERVISOR documented as of this encounter Visit Diagnoses Diagnosis Fissure Anal- Primary documented in this encounter Care Teams Time Study Observer Relationship Specialty Start Date End Date Elsewhere, Pcp PCP - General Internal Medicine 07/05/22 documented as of this encounter
--- OUTSIDE RECORDS SUMMARY | 2023-03-23 09:50 | XMS_ITS | Encounter Summary ---
Author Name Unknown Organization [facility] Address [address] [place] [address] Care Team Providers Care Cryptologist Name Role Phone Elsewhere, Pcp Primary Care Provider Unavailabl e Reason for Visit * Reason Comments Enlarged tag, check on progress of fissu re * Outpatient (Routine) - Closed Specialty Diagnoses / Procedures Referred By Isiah milligan Referred To Contact Colon and Rectal Surgery Rishi Edward APRN, C.N.P., M.S. [address] [place] [phone] [facility] Referral ID Status Reason Start Date Expiration Date Visits Re quested Visits Authorized [id number] Closed 09/23/2022 09/22/2025 1 1 Encounter Details Date Type Department Care Team (Late st Contact Info) Description 10/04/2022 2:30 PM CDT Office Visit Division of Colon and Rectal Surgery in [place], [place] [address] [place] [phone] Rishi Edward APRN, C.N.P., M.S. [address] [place] [phone] Fissure Anal (Primary Dx) Social History Tobacco Use Types Packs/Day Years Used Date Smoking Tobacco: Never Smokeless Tobacco: Never Tobacco Cessation:Counseling Given: Not Answered Humiliation, Afraid, Rape, and Kick questionnair e [...] as of this encounter Consult Notes * Risih Edward APRN, C.N.P., M.S. - 10/04/2022 2:30 PM CDT SUBJECTIVE CHIEF COMPLAINT / REASON FOR VISIT Slim Washington is a 67 y.o. male presenting in referral from Rishi Edward APRN, C.* for consultation in the evaluation of anal fissure. HISTORY OF PRESENT ILLNESS Mr. Washington is a pleasant 67-year-old gentleman who returns to the anorectal surgery Clinic today forfurther evaluation of a prior diagnosed anal fissure. Mr. Washington underwent an examination under anesthesia with Botox injection by Dr. Lozoya on July 05 of this year. He states that he has done relatively well and his pain is better from prior to the procedure. However, he continues to have intermittent discomfort as well as bright red blood on the toilet paper and sometimes dripping into the toilet. We will re-evaluate the area today and discuss next steps. He does continue to use diltiazem cream. The following portions of the patient's history [...] in the prone bobbi- knife position with JAVI Murillo present. External evaluation reveals 2 mildly sized anal tags in the left and right posterolateral positions. Right in between these 2 anal tags is a separation of skin likely a fissure. Thiswas somewhat painful to the touch for the patient. No evidence of infection or abscess. No other external abnormalities ASSESSMENT / PLAN #1 Fissure Anal I had a good discussion with Mr. Washington. At this point it would be appropriate and reasonable to move forward with a repeat Botox injection. However, since his pain has improved and he is having more bleeding symptoms then I think we can continue with the diltiazem cream along with Sitz baths and monitoring bowel regimen. He is going to update me on his status in the next several weeks if been anyimprovement. If there isn't we can move forward with a repeat Botox injection but at this time I think we will continue with conservative measures. He is agreeable to the plan of care and has no further questions or concerns. documented in this encounter Plan of Treatment Scheduled Procedures Name Priority Associated Diagnoses Date/Ti me EXAMINATION UNDER ANESTHESIA ANORECTAL Fissure Anal Hemorrhoids External 03/23/2023 2:14 PM BUTT PRESSER INJECTION BOTOX - INTERNAL ANAL SPHINCTER Fissure Anal Hemorrhoids External 03/23/2023 2:14 PM BUTT PRESSER EXCISION SKIN TAG ANAL Fissure Anal Hemorrhoids External 03/23/2023 2:14 PM BUTT PRESSER documented as of this encounter Visit Diagnoses Diagnosis Fissure Anal- Primary documented in this encounter Care Teams Cryptologist Relationship Specialty Start Date End Date Elsewhere, Pcp PCP - General Internal Medicine 07/05/22 documented as of this encounter
--- OUTSIDE RECORDS SUMMARY | 2023-03-23 09:51 | XMS_ITS | Encounter Summary ---
Author Name Unknown Organization [facility] Address [address] [place] [address] Care Team Providers Care Survey Technician Name Role Phone Unavailable Primary Care Provider Unavailabl e Encounter Details Date Type Department Care Team (Late st Contact Info) Description 05/19/2022 [facility] [address] [place] [phone] Milan Banegas M.D. [address] [place] [phone] Social History Tobacco Use Types Packs/Day Years Used Date Smoking Tobacco: Never Assessed Nutrition Answer Date Recorded Nutrition: EVOO Fat [...] Fissure Anal Hemorrhoids External 03/23/2023 2:14 PM INGOT WEIGHER INJECTION BOTOX - INTERNAL ANAL SPHINCTER Fissure Anal Hemorrhoids External 03/23/2023 2:14 PM INGOT WEIGHER EXCISION SKIN TAG ANAL Fissure Anal Hemorrhoids External 03/23/2023 2:14 PM INGOT WEIGHER documented as of this encounter Visit Diagnoses Not on filedocumented in this encounter
--- OUTSIDE RECORDS SUMMARY | 2023-03-23 09:51 | XMS_ITS | Encounter Summary ---
Author Name Unknown Organization [facility] Address [address] [place] [id number] Care Team Providers Care Rectification Printer Name Role Phone Elsewhere, Pcp Primary Care Provider Unavailabl e Reason for Visit * Auth/Cert (Routine) Specialty Diagnoses / Procedures Referred By Isiah t Referred To Contact Diagnoses Fissure Anal Fissure Anal [K60.2] Procedures EXAMINATION UNDER ANESTHESIA ANORECTAL INJECTION BOTOX - INTERNAL ANAL SPHINCTER Referral ID Status Reason Start Date Expiration Date Visits Re quested Visits Authorized [id number] 1 1 Encounter Details Date Type Department Care Team (Late st Contact Info) Description 07/05/2022 11:59 AM CDT - 07/05/2022 12:47 PM CDT [facility] in [place], [place] [address] [place] [phone] Delicia Lozoya M.D. [address] [place] [phone] EXAMINATION UNDER ANESTHESIA ANORECTAL. Social History Tobacco Use Types Packs/Day Years Used Date Smoking Tobacco: Never Smokeless Tobacco: Never Tobacco Cessation:Counseling Given: Not Answered Nutrition Answer Date Recorded Nutrition: EVOO Fat [...] AM CDT documented as of this encounter Last Filed Vital Signs Vital Sign Reading Time Taken Comments Blood Pressure 117/81 07/05/2022 11:00 AM CDT Pulse 68 07/05/2022 11:15 AM CDT Temperature 36.7 ??C (98.1 ??F) 07/05/2022 10:54 AM C DT Respiratory Rate 14 07/05/2022 11:15 AM CDT Oxygen Saturation 96% 07/05/2022 11:15 AM CDT Inhaled Oxygen Concentration - - Weight - - Height - - Body Mass Index - - documented in this encounter Discharge Instructions * Discharge Instructions* Isha Medina R.N. - 07/05/2022 10:34 AM CDT Images from the original note were not included. About Your IV Sedation You will receive sedation medication before your procedure. This medication will help you relax andreduce your anxiety and discomfort during your procedure. You may still be aware of your surroundings. However, you may become so relaxed that you drift off to sleep during the procedure. Before receiving IV sedation Eating and drinking 8 hours before your arrival time: Stop eating solid food. Continue drinking liquids. Do not drink alcohol-containing beverages. Do not use e-cigarettes or tobacco products, including chewing tobacco. 6 hours before your arrival time: Stop drinking any non-clear liquids such as: Milk, including soy and almond milk. [place] or tomato juice. You may continue drinking clear liquids such as: Water. Clear fruit juice (such as apple or white grape; no orange or tomato juice). Carbonated beverages. Clear broth. Gelatin (such as JELL-O). Ice pops or Popsicles (no pulp). Clear tea or black coffee (no milk or creamer). If you have a feeding tube, stop giving feedings through the tube. You may continue giving water orother clear liquids through the tube. 2 hours before your arrival time: Stop drinking anything. If you have a feeding tube, stop giving water or other clear liquids through the tube. Plans to make before your procedure Sedation You may feel fine after your procedure, but your judgment may be impaired from the sedation medication. Sedation medication also may increase your risk to fall. Use caution and ask for help when you walkor move around. Arrange to have an adult family member or friend accompany you to your procedure and other appointments, to pick you up from the procedure unit, and to drive you home or to your place of lodging. If plans have not been made for your travel after the procedure, the absence of a responsible adultwill result in a delay or cancellation of your procedure. If you will be alone, check to see whether you can hire a marine steam fitter care service agency to take youto your home or hotel and provide support as needed. If you will be alone, check with your hotel to see if it offers a shuttle to and from [facility]. Talk to your health care team now if you need help to find transportation. Do not drive for the rest of the day. This is for your safety and the safety of others. Unaccompanied air travel on the same day as your procedure is not advised. If you use a Continuous Positive Airway Pressure (CPAP) or Bilevel Positive Airway Pressure (BiPAP)machine to help you sleep: Ask your provider if you should bring your machine and mask with you. These may be used after the procedure. If you use an external medication-infusion pump (example: an insulin pump) or wear a cardiac defibrillator vest, you must arrange to have a responsible adult accompany you to and from the procedure. This is for your safety. If you have an internal device that is controlled with a remote, bring the remote with you. Medications If you take medications: Continue to take prescribed medications unless instructed otherwise. Take with a sip of clear liquids up to 2 hours before your arrival time. If you take nitroglycerin, take as prescribed if needed at any time. Do not take vitamins, supplements or medications you can buy without a prescription unless instructed otherwise. If you have diabetes: Before your procedure, contact the health care provider who manages your insulin or other diabetes medications for specific instructions on taking or adjusting them. If you take blood-thinning medications: Blood-thinning medications affect clotting and bleeding. Both the health care provider who manages these medications and the provider doing your procedure willneed to decide if your medications need to change. Some examples of generic and brand name medications that affect blood thinning are: Oral anticoagulants (blood thinners): apixaban (Eliquis), dabigatran (Pradaxa), edoxaban (Savaysa),rivaroxaban (Xarelto), warfarin (Coumadin, Jantoven) Injectable anticoagulants (blood thinners): heparin, enoxaparin (Lovenox), dalteparin (Fragmin), fondaparinux (Arixtra) Oral antiplatelets: aspirin or aspirin-containing products, aspirin-dipyridamole (Aggrenox), clopidogrel (Plavix), prasugrel (Effient), ticagrelor (Brilinta) Other: cilostazol (Pletal), vorapaxar (Zontivity) Nonsteroidal anti-inflammatory drugs (NSAIDs) such as ibuprofen (Advil, Motrin), naproxen (Aleve, Naprosyn), celecoxib (Celebrex) Contact the health care provider who manages these medications about whether you should stop takingthem before the procedure and for how long. After the procedure, the health care provider who manages these medications and the provider doing your procedure will need to decide when to restart these medications. If you use herbal supplements, let your health care provider know. During IV sedation Before your procedure, an IV (???intravenous?? or through a vein) line is placed in your hand or arm. Sedation medication is given through the IV. Your health care team monitors your oxygen level, heart rate, respiratory rate, blood pressure and consciousness level throughout your procedure. After IV sedation After you have been sedated, it is common to have lapses of memory, slowed reaction time and impaired judgment. Do not drive or operate motorized vehicles or equipment for the rest of the day. This is for your safety and the safety of others. Air travel by yourself on the day of the procedure is not advised. For the rest of the day after being sedated: Rest. Do not return to work or school. Do not take on responsibility for children or anyone who depends on your care. Do not use exercise equipment or take part in rough play or sports. Do not drink alcoholic beverages. Sedation medication also may increase your risk of falling. Use caution and ask for help when you walk or move around. You may want to have someone help you for the rest of the day. You may resume your usual diet when you feel able to do so, unless you are told otherwise. Contacting your health care provider Contact your health care provider if you have: The following side effects longer than 24 hours: Ongoing dizziness. Persistent nausea or repeated vomiting. Signs of infection, which may include: A temperature of 100.4 degrees Fahrenheit (38 degrees Celsius) or greater. Chills. An increase in pain or pain not helped by pain medications. An increase in swelling or tenderness at the site. A change in skin color at the site. This change may be a shade of red, purple or brown, depending on your skin color. New drainage or an increase in drainage coming from the site. A bad-smelling odor from the site. This material is for your education and information only. This content does not replace medical advice, diagnosis or treatment. New medical research may change this information. If you have questionsabout a medical condition, always talk with your health care provider. ?? 2021 [facility] Medical Education and Research ([facility]). All rights reserved. [id number] documented in this encounter Medications at Time of Discharge Medication Sig Dispensed Refills Start Date End Date clonazePAM (KlonoPIN) 1 mg tablet Take 1 mg by mouth 2 (two) times a day as needed. 0 03/30/2022 fluticasone propionate (FLOVENT HFA) 220 mcg/actuation inhaler Administer into nostril(s) as needed. 0 12/29/2021 UNABLE TO FIND Apply topically. Lidocaine-diltiazem 2% 0 Nitro-Bid 2 % ointment as directed. 0 04/13/202210/04 documented as of this encounter OR Notes * Op Note - Delicia Lozoya M.D. - 07/05/2022 12:37 PM CDT Pre-op Diagnosis Fissure Anal Post-op Diagnosis Fissure Anal A airline pilot/first officer actively participated and was necessary for one or more of the following: opening, exposure and visualization during the case, maintaining hemostasis, wound closure resulting in itssafe and expeditious completion. Findings As expected. Complications None Operative Note Narrative No Oncologic Resection Slim Sonia Felix was taken to the operating room, underwent general anesthesia, and appropriately positioned. Preoperative antibiotics were administered, and the patient was prepped and draped in a normal sterile fashion. Following prepping and draping, a pause was performed, identifying the correct patient, date, site, and procedure. We started with a perianal examination which revealed circumferential skin tags around the anus. Digital anal and rectal examination revealed soft anal stenosis which was gently dilated with my indexfinger. Diagnostic anoscopy revealed a posterior midline fissure that was friable and immediately started bleeding. He also has some circumferential mild internal hemorrhoids. We then proceeded with injecting 100 units of Botox into the internal sphincter muscle with 40 units on each side of the fissure and 20 directly in the mid portion of the fissure. Exparel, 266 mg was injected for postoperative pain control. The perianal region was cleaned and dried, and dry fluff dressings and mesh underwear were applied. Slim Washington tolerated the procedure well. There were no complications during the case. He was transferred to the post anesthesia care unit in stable condition. Delicia Lozoya M.D. documented in this encounter Plan of Treatment Scheduled Procedures Name Priority Associated Diagnoses Date/Ti me EXAMINATION UNDER ANESTHESIA ANORECTAL Fissure Anal Hemorrhoids External 03/23/2023 2:14 PM SPOOL CARRIER INJECTION BOTOX - INTERNAL ANAL SPHINCTER Fissure Anal Hemorrhoids External 03/23/2023 2:14 PM SPOOL CARRIER EXCISION SKIN TAG ANAL Fissure Anal Hemorrhoids External 03/23/2023 2:14 PM SPOOL CARRIER documented as of this encounter Procedures Procedure Name Priority Date/Time Associated Diagnosis Comments INJECTION BOTOX - INTERNAL ANAL SPHINCTER 07/05/2022 12:04 PM CDT Fissure Anal Case Notes Service: MathisPost-op orders: Family: [place] in texting systemRx: [place] pharmacy[place] plans: HSCAssistive Devices: noneOther needs: EXAMINATION UNDER ANESTHESIA ANORECTAL 07/05/2022 12:04 PM CDT Fissure Anal Case Notes Service: EmilioisPost-op orders: Family: Jazmy[place] in texting systemRx: [place] [facility] plans: HSCAssistive Devices: noneOther needs: documented in this encounter Visit Diagnoses Diagnosis Fissure Anal- Primary Fissure Anal documented in this encounter Admitting Diagnoses Diagnosis Fissure Anal documented in this encounter Administered Medications Inactive Administered Medications - up to 3 most recent administrations Medication Order MAR Action Action Date Dose Rate Site acetaminophen injection 1,000 mg 1,000 mg, intravenous, at 400 mL/hr, Administer over 15 Minutes, Once as needed, other, If patient has not received in previous 6 hours, Starting on Mon07/05/22 at 1311, For 1 dose, PACU (only), Oral unless RASS less than -1 or nausea/vomiting. Do not use if given in last 6 hours, Restriction Criteria (Pharmacy will review and approve if criteria met): Unable to take or tolerate medications administered via the enteral route or orally (not just NPO) acetaminophen tablet 1,000 mg (TYLENOL) 1,000 mg, oral, Once as needed, other, If patient has not received in the previous 6 hours, Starting on Mon07/05/22 at 1311, For 1 dose, PACU (only), Oral unless RASS less than -1 or nausea/vomiting. Do not use if given in last 6 hours BUPivacaine liposome (PF) 266 mg/20 mL (13.3 mg/mL) injection (EXPAREL) As needed, Starting on Mon07/05/22 at 1240, Intra-Op Given 07/05/2022 12:40 PM CDT 20 mL Other caffeine tablet 200 mg 200 mg, oral, Once as needed, If patient has not consumed caffeine today and usually consumes more than 100 mg per day (1-2 cups of coffee or 3 or more caffeinated sodas), Starting on Mon07/05/22 at 1034, For 1 dose, Pre-Op lactated ringers 20 mL/hr, intravenous, Continuous, Starting on Mon07/05/22 at 1115 Continued from OR 07/05/2022 1:09 PM CDT 20 mL/hr 20 mL/hr Rate/Dose Verify 07/05/2022 12:39 PM CDT 20 mL/ hr Restarted 07/05/2022 12:26 PM CDT lidocaine (PF) 10 mg/mL (1 %) injection 0.1 mL (XYLOCAINE) 0.1 mL, intradermal, As needed, for venipuncture, Starting on Mon07/05/22 at 1034, Pre-Op metoprolol tablet 12.5 mg (LOPRESSOR) 12.5 mg, oral, Once as needed, if patient did not take their last scheduled dose of beta radha prior to arrival, Starting on Mon07/05/22 at 1034, For 1 dose, Pre-Op, Do not give if patient does not take scheduled beta blockers, if patient is receiving intravenous vasopressors or inotropes, if heart rate is less than 50 beats per minute, if systolic blood pressure is less than 90 mmHg or if diastolic blood pressure is less than 40 mmHg, or if patient has an allergy to metoprolol. onabotulinumtoxinA injection (BOTOX) As needed, Starting on Mon07/05/22 at 1239, Intra-Op Given 07/05/2022 12:39 PM CDT 100 Units Ot her sodium chloride 0.9 % injection 10 mL 10 mL, intravenous, As needed, line care, Starting on Mon07/05/22 at 1034, Pre-Op, Peripheral Intravenous Catheter and Rapid Infusion Catheter, prior to blood sampling, post blood transfusion or post blood sampling sodium chloride 0.9 % injection 3 mL 3 mL, intravenous, As needed, line care, Starting on Mon07/05/22 at 1034, Pre-Op, Prior to and following infusion and between multiple consecutive infusions: sodium chloride 0.9 % injection sodium chloride 0.9 % injection 3 mL 3 mL, intravenous, Every 12 hours scheduled, First dose on Mon07/05/22 at 2100, Pre-Op, Peripheral Intravenous Catheter and Rapid Infusion Catheter, when no infusion to maintain patency documented in this encounter Active and Recently Administered Medications Times are shown in CDT. Scheduled Medication Order 07/03/2022 07/04/2022 07/05/2022 acetaminophen tablet 1,000 mg (TYLENOL) 1,000 mg, oral, Once, On Mon07/05/22 at 1045, For 1 dose, Pre-Op, With sips, preprocedure on units 1045 (Due) ceFAZolin injection 2,000 mg (ANCEF)(Linked Group 1) 2,000 mg (rounded from 1,865 mg = 25 mg/kg ? 74.6 kg Dosing weight), intravenous, Once, On Mon07/05/22 at 1215, For 1 dose, Intra-Op, Administer within 1 hour prior to surgical incision If needed, reconstitute vial per package insert instructions. See IVAG for administration guidelines. , Drug Monitoring Program: Pharmacist to adjust medication dosing based on indication and drug clearance factors., Indications: Prophylaxis, surgical 1215 (Due) metroNIDAZOLE in NaCl (iso osm) IVPB 500 mg (FLAGYL)(Linked Group 1) 500 mg, intravenous, at 200 mL/hr, Administer over 30 Minutes, Once, On Mon07/05/22 at 1215, For 1 dose, Intra-Op, Administer within 1 hour prior to surgical incision, Indications: Prophylaxis, surgical 1215 (Due) sodium chloride 0.9 % injection 3 mL 3 mL, intravenous, Every 12 hours scheduled, First dose on Mon07/05/22 at 2100, Pre-Op, Peripheral Intravenous Catheter and Rapid Infusion Catheter, when no infusion to maintain patency Continuous Medication Order 07/03/2022 07/04/2022 07/05/2022 lactated ringers 20 mL/hr, intravenous, Continuous, Starting on Mon07/05/22 at 1115 1109 (New Bag - Prov ider: Isha Medina R.N.)1225 (Paused - Provider: Vinny Pulido APRN, CRNA, SARTHAK - Comment: Switch to gravity)1226 (Restarted - Provider: Vinny Pulido APRN, CHINO, SARTHAK)1239 (Rate/Dose Verify - Provider: Vinny Pulido APRN, CRNA, SARTHAK)1243 (Anesthesia Volume Adjustment - Provider: Vinny Pulido APRN, CRNA, SARTHAK)1309 (Continued from OR - Provider: Isha Medina R.N.)1337 (Stopped - Provider: Isha Medina R.N.) PRN Medication Order 07/03/2022 07/04/2022 07/05/2022 acetaminophen injection 1,000 mg(Linked Group 2) 1,000 mg, intravenous, at 400 mL/hr, Administer over 15 Minutes, Once as needed, other, If patient has not received in previous 6 hours, Starting on Mon07/05/22 at 1311, For 1 dose, PACU (only), Oral unless RASS less than -1 or nausea/vomiting. Do not use if given in last 6 hours, Restriction Criteria (Pharmacy will review and approve if criteria met): Unable to take or tolerate medications administered via the enteral route or orally (not just NPO) acetaminophen tablet 1,000 mg (TYLENOL)(Linked Group 2) 1,000 mg, oral, Once as needed, other, If patient has not received in the previous 6 hours, Starting on Mon07/05/22 at 1311, For 1 dose, PACU (only), Oral unless RASS less than -1 or nausea/vomiting. Do not use if given in last 6 hours BUPivacaine liposome (PF) 266 mg/20 mL (13.3 mg/mL) injection (EXPAREL) (CANCELED) As needed, Starting on Mon07/05/22 at 1240, Intra-Op 1240 (Given - Provid er: Delicia Lozoya M.D. - Comment: perianal) caffeine tablet 200 mg 200 mg, oral, Once as needed, If patient has not consumed caffeine today and usually consumes more than 100 mg per day (1-2 cups of coffee or 3 or more caffeinated sodas), Starting on Mon07/05/22 at 1034, For 1 dose, Pre-Op fentaNYL injection 25 mcg (SUBLIMAZE) 25 mcg, intravenous, Every 2 min PRN, For pain 4 or greater (maximum 100 mcg). If max dose of Fentanyl is reached and if pain is greater than 4, discontinue Fentanyl: give Hydromorphone, Starting on Mon07/05/22 at 1311, PACU (only) granisetron (PF) injection 1 mg (KYTRIL) 1 mg, intravenous, Once as needed, nausea, vomiting, Starting on Mon07/05/22 at 1311, For 1 dose, PACU (only), If patient does not respond to ondansetron or haloperidol. (order of antiemetic administration - ondansetron then haloperidol then granisetron) haloperidol lactate injection 1 mg (HALDOL) 1 mg, intravenous, Every 6 hours PRN, nausea, vomiting, Starting on Mon07/05/22 at 1311, PACU (only), Total of 3 doses in 24 hour period. RASS must be -2 or higher to administer. If nausea and vomiting persists, move to granisteron. (order of antiemetic administration - ondansetron then haloperidol then granisetron) HYDROmorphone (PF) injection 0.2 mg (DILAUDID) 0.2 mg, intravenous, Every 5 min PRN, moderate pain or score 4-6 of 10, severe pain or score 7-10 of 10, Starting on Mon07/05/22 at 1311, PACU (only), Up to maximum total dose of 2 mg lidocaine (PF) 10 mg/mL (1 %) injection 0.1 mL (XYLOCAINE) 0.1 mL, intradermal, As needed, for venipuncture, Starting on Mon07/05/22 at 1034, Pre-Op metoprolol tablet 12.5 mg (LOPRESSOR) 12.5 mg, oral, Once as needed, if patient did not take their last scheduled dose of beta radha prior to arrival, Starting on Mon07/05/22 at 1034, For 1 dose, Pre-Op, Do not give if patient does not take scheduled beta blockers, if patient is receiving intravenous vasopressors or inotropes, if heart rate is less than 50 beats per minute, if systolic blood pressure is less than 90 mmHg or if diastolic blood pressure is less than 40 mmHg, or if patient has an allergy to metoprolol. onabotulinumtoxinA injection (BOTOX) (CANCELED) As needed, Starting on Mon07/05/22 at 1239, Intra-Op 1239 (Given - Provid er: Delicia Lozoya M.D. - Comment: anal sphincter) ondansetron (PF) injection 4 mg (ZOFRAN) 4 mg, intravenous, Every 6 hours PRN, nausea, vomiting, (If patient has not received in the previous 6 hours), Starting on Mon07/05/22 at 1311, PACU (only), Administer first. If nausea and vomiting persists, proceed with haloperidol. (order of antiemetic administration - ondansetron then haloperidol then granisetron) oxyCODONE IR tablet 10 mg (ROXICODONE) 10 mg, oral, Once as needed, For pain 4 or greater, Starting on Mon07/05/22 at 1311, For 1 dose, PACU (only) sodium chloride 0.9 % injection 10 mL 10 mL, intravenous, As needed, line care, Starting on Mon07/05/22 at 1034, Pre-Op, Peripheral Intravenous Catheter and Rapid Infusion Catheter, prior to blood sampling, post blood transfusion or post blood sampling sodium chloride 0.9 % injection 3 mL 3 mL, intravenous, As needed, line care, Starting on Mon07/05/22 at 1034, Pre-Op, Prior to and following infusion and between multiple consecutive infusions: sodium chloride 0.9 % injection Linked Groups Order Group 1: ceFAZolin injection 2,000 mg (ANCEF)Jump to med 2,000 mg (rounded from 1,865 mg = 25 mg/kg ? 74.6 kg Dosing weight), intravenous, Once, On Mon07/05/22 at 1215, For 1 dose, Intra-Op, Administer within 1 hour prior to surgical incision If needed, reconstitute vial per package insert instructions. See IVAG for administration guidelines. , Drug Monitoring Program: Pharmacist to adjust medication dosing based on indication and drug clearance factors., Indications: Prophylaxis, surgical And metroNIDAZOLE in NaCl (iso osm) IVPB 500 mg (FLAGYL)Jump to med 500 mg, intravenous, at 200 mL/hr, Administer over 30 Minutes, Once, On Mon07/05/22 at 1215, For 1 dose, Intra-Op, Administer within 1 hour prior to surgical incision, Indications: Prophylaxis, surgical Group 2: acetaminophen tablet 1,000 mg (TYLENOL)Jump to med 1,000 mg, oral, Once as needed, other, If patient has not received in the previous 6 hours, Starting on Mon07/05/22 at 1311, For 1 dose, PACU (only), Oral unless RASS less than -1 or nausea/vomiting. Do not use if given in last 6 hours Or acetaminophen injection 1,000 mgJump to med 1,000 mg, intravenous, at 400 mL/hr, Administer over 15 Minutes, Once as needed, other, If patient has not received in previous 6 hours, Starting on Mon07/05/22 at 1311, For 1 dose, PACU (only), Oral unless RASS less than -1 or nausea/vomiting. Do not use if given in last 6 hours, Restriction Criteria (Pharmacy will review and approve if criteria met): Unable to take or tolerate medications administered via the enteral route or orally (not just NPO) documented in this encounter Care Teams Rectification Printer Relationship Specialty Start Date End Date Elsewhere, Pcp PCP - General Internal Medicine 07/05/22 documented as of this encounter
--- OUTSIDE RECORDS SUMMARY | 2023-03-23 09:51 | XMS_ITS | Encounter Summary ---
Author Name Unknown Organization [facility] Address [address] [place] [address] Care Team Providers Care Machinery Dismantler Name Role Phone Unavailable Primary Care Provider Unavailabl e Reason for Visit * Reason Comments Consult Anal pain , anal fis sure * Appointment Request (Routine) - Closed Specialty Diagnoses / Procedures Referred By Isiah milligan Referred To Contact Colon and Rectal Surgery Diagnoses Pain Anal Fissure Anal Milan Banegas M.D. [address] [place] [address] Referral ID Status Reason Start Date Expiration Date Visits Re quested Visits Authorized [id number] Closed 06/03/2022 06/03/2023 1 1 Encounter Details Date Type Department Care Team (Latest Contact Info) Description 06/21/2022 8:00 AM CDT Comprehensive Visit Division of Colon and Rectal Surgery in [place], [place] [address] [place] [address] Rishi Edward, MORENA, C.N.P., M.S. [address] [place] [phone] Constipation (Primary Dx); Fissure Anal Social History Tobacco Use Types Packs/Day Years Used Date Smoking Tobacco: Never Assessed Nutrition Answer Date Recorded Nutrition: EVOO Fat Source Unknown 05/12 Nutrition: Servings of Fruits/Vegetables per Day Not on file 05/12/2022 Dental Answer Date Recorded Dental: Regular Dentist Unknown 05/13/19 23 Sex and Gender Information Value Date Recorded Sex Assigned at Male 09/30/2022 4:37 AM CDT Gender Identity Male 09/30/2022 4:37 AM CDT Sexual Orientation Straight 09/30/2022 4: 37 AM CDT documented as of this encounter Last Filed Vital Signs Vital Sign Reading Time Taken Comments Blood Pressure 139/91 06/21/2022 7:46 AM CDT Pulse 91 06/21/2022 7:46 AM CDT Temperature 36.2 ??C (97.2 ??F) 06/21/2022 7:46 AM CD T Respiratory Rate - - Oxygen Saturation - - Inhaled Oxygen Concentration - - Weight 74.6 kg (164 lb 7.4 oz) 06/21/2022 7:46 A M CDT Height 176 cm (5' 9.29) 06/21/2022 7:46 AM CDT Body Mass Index 24.08 06/21/2022 7:46 AM CDT documented in this encounter Consult Notes * Rishi Edward, MORENA, C.N.P., M.S. - 06/21/2022 8:00 AM CDT SUBJECTIVE CHIEF COMPLAINT / REASON FOR VISIT Slim Washington is a 67 y.o. male presenting in referral from Milan Banegas M.D. for consultation inthe evaluation of Consult (Anal pain, anal fissure) HISTORY OF PRESENT ILLNESS Mr. Washington is a pleasant 67-year-old gentleman who was referred to the anorectal surgery Clinic today for evaluation and further treatment of a suspected anal fissure. Mr. Washington has a longstanding history of constipation and difficulty having bowel movements. His last colonoscopy took place in November of 2018 and was entirely normal but following that procedure he started to experience difficulties with hemorrhoids and anal fissure. Mr. Washington has been seen multiple times by his local providers and Colon and Rectal Surgeons for hisanal pain and constipation. There has never been a true diagnosis of an anal fissure up to this point. This has all been suspected based on his symptoms. He is on MiraLax daily and does also use diltiazem cream twice daily. He has had no other treatment for anal fissure. Mr. Washington states that he has had significant pain with bowel movements since April 04. He has been on his diltiazem cream since mid April. He takes Sitz baths multiple times per day. He endorses small amounts of blood on the toilet paper and in the stool intermittently. He tells me that he was diagnosed with pelvic floor dysfunction years ago. He has had no other anal fissure treatment or workup for constipation or pelvic floor dysfunction. We will evaluate further today. The following portions of the patient's history [...] with NUBIA Hameed present. External evaluation reveals perianal skin tags circumferentially. No evidence of abscess or infection. On gentle spread of the buttocks he does have a posterior midline anal fissure. ASSESSMENT / PLAN #1 Fissure Anal #2 Constipation I had a good conversation with Mr. Washington. He does have an anal fissure in the posterior midline position. This is likely been exacerbated by his constipation and potential pelvic floor dysfunction. Prior to any pelvic floor dysfunction workup with an anorectal manometry test we need to try to get the fissure healed. I have also ordered a GI motility Clinic visit to address his constipation. We will also set him up for a Botox injection. The patient was listed for surgery on 07/05/2022 Surgeon: Dr. Lozoya Procedure: EUA with Botox injection Consent form completed Does the patient have [...] answered and the patient agreed to proceed. There is no bowel prep or skin prep for anorectal surgery. The adult fasting guidelines were reviewed. Medications were reviewed. All questions were answered. Patient was given my contact information. documented in this encounter Plan of Treatment Scheduled Procedures Name Priority Associated Diagnoses Date/Ti me EXAMINATION UNDER ANESTHESIA ANORECTAL Fissure Anal Hemorrhoids External 03/23/2023 2:14 PM E COMMERCE WEB DEVELOPER INJECTION BOTOX - INTERNAL ANAL SPHINCTER Fissure Anal Hemorrhoids External 03/23/2023 2:14 PM E COMMERCE WEB DEVELOPER EXCISION SKIN TAG ANAL Fissure Anal Hemorrhoids External 03/23/2023 2:14 PM E COMMERCE WEB DEVELOPER documented as of this encounter Visit Diagnoses Diagnosis Constipation- Primary Fissure Anal documented in this encounter
--- OUTSIDE RECORDS SUMMARY | 2023-03-23 09:51 | XMS_ITS | Encounter Summary ---
Author Name Unknown Organization [facility] Address [address] [place] [address] Care Team Providers Care Retail Center Receptionist Name Role Phone Elsewhere, Pcp Primary Care Provider Unavailabl e Reason for Visit * Auth/Cert (Routine) Specialty Diagnoses / Procedures Referred By Isiah milligan Referred To Contact Diagnoses Fissure Anal Fissure Anal [K60.2] Procedures EXAMINATION UNDER ANESTHESIA ANORECTAL INJECTION BOTOX - INTERNAL ANAL SPHINCTER Referral ID Status Reason Start Date Expiration Date Visits Re quested Visits Authorized [id number] 1 1 Encounter Details Date Type Department Care Team (Latest Contact Info) Description 07/05/2022 10:24 AM CDT - 07/05/2022 2:05 PM CDT Hospital Encounter Outpatient Procedure Center in [place], [place] [address] [place] [address] Delicia Lozoya M.D. [address] [place] [address] Discharge Disposition: Home or Self Care Social History Tobacco Use Types Packs/Day Years [...] as: Milk, including soy and almond milk. [place] or tomato juice. You may continue drinking [...] to see whether you can hire a hospice art therapist care service agency to take youto your home or hotel and provide support as needed. If you will be alone, check with your hotel to see if it offers a shuttle to and from [facility]. Talk to your health care team now [...] with your health care provider. ?? 2021 [employer] ([facility]). All rights reserved. [id number] documented in this encounter Medications at Time [...] Fissure Anal Post-op Diagnosis Fissure Anal A list of first job ideas actively participated and was necessary for one [...] Fissure Anal Hemorrhoids External 03/23/2023 2:14 PM PATIENT SERVICES ASSISTANT INJECTION BOTOX - INTERNAL ANAL SPHINCTER Fissure Anal Hemorrhoids External 03/23/2023 2:14 PM PATIENT SERVICES ASSISTANT EXCISION SKIN TAG ANAL Fissure Anal Hemorrhoids External 03/23/2023 2:14 PM PATIENT SERVICES ASSISTANT documented as of this encounter Procedures Procedure Name Priority Date/Time Associated Diagnosis Comments INJECTION BOTOX - INTERNAL ANAL SPHINCTER 07/05/2022 12:04 PM CDT Fissure Anal Case Notes Service: MathisPost-op orders: Family: Jazmyne in texting systemRx: Advance pharmacyD/C plans: HSCAssistive Devices: noneOther needs: EXAMINATION UNDER ANESTHESIA ANORECTAL 07/05/2022 12:04 PM CDT Fissure Anal Case Notes Service: EmilioisPost-op orders: Family: Jazmyne in texting systemRx: Advance pharmacyD/C plans: HSCAssistive Devices: noneOther needs: documented in this encounter Visit Diagnoses Diagnosis Fissure Anal- Primary documented in this encounter Admitting Diagnoses Diagnosis [...] use if given in last 6 hours caffeine tablet 200 mg 200 mg, oral, [...] on Mon07/05/22 at 1034, For 1 dose, Pre- Op, Do not give if patient does not take scheduled beta blockers, if patient is receiving intravenous vasopressors or inotropes, if heart rate is less than 50 beats per minute, if systolic blood pressure is less than 90 mmHg or if diastolic blood pressure is less than 40 mmHg, or if patient has an allergy to metoprolol. sodium chloride 0.9 % injection 10 mL 10 mL, intravenous, As needed, line care, Starting on Mon07/05/22 at 1034, Pre- Op, Peripheral Intravenous Catheter and Rapid Infusion Catheter, [...] Comment: Switch to gravity)1226 (Restarted - Provider: iVnny Pulido APRN, CHINO, SARTHAK)1239 (Rate/Dose Verify - Provider: Vinny Pulido APRN, CHINO, SARTHAK)1243 (Anesthesia Volume Adjustment - Provider: Vinny [...] Intra-Op 1239 (Given - Provid er: Delicia Loozya M.D. - Comment: anal sphincter) ondansetron (PF) [...] NPO) documented in this encounter Care Teams Retail Center Receptionist Relationship Specialty Start Date End Date Elsewhere, Pcp PCP - General Internal Medicine 07/05/22 documented as of this encounter
== END 2023-03-16 10:11 | disposition home or self-care (01) ==
LOC: NFLDREF 03-23 09:46
PROVIDERS: PCP Family Medicine; Referring Provider Family Medicine; Visit Provider Family Medicine
DX: R53.83 Other fatigue (principal)
CPT/HCPCS: 80048

== ENCOUNTER 2023-05-23 13:34 | Outpatient (CLI) | payer BC, SELFPAY | END 2023-05-23 13:35 | disposition home or self-care (01) | LOC: LKVREF 13:36 | PROVIDERS: PCP Family Medicine; Visit Provider Family Medicine | DX: R00.2 Palpitations (principal) | CPT/HCPCS: 84443 ==

== ENCOUNTER 2024-06-24 11:05 | Outpatient (CLI) | payer BC, SELFPAY | END 2024-06-24 11:06 | disposition home or self-care (01) | PROVIDERS: PCP Family Medicine; Visit Provider Physician Assistant Medical | DX: R21 Rash and other nonspecific skin eruption (principal); M25.542 Pain in joints of left hand | CPT/HCPCS: 86038; 86200; 86431 ==

== ENCOUNTER 2024-09-26 13:01 | Outpatient (CLI) | payer MEDICARE, BC, SELFPAY | END 2024-09-26 13:02 | disposition home or self-care (01) | LOC: NFLDREF 09-27 08:03 | PROVIDERS: PCP Family Medicine; Referring Provider Family Medicine; Visit Provider Family Medicine | DX: E11.9 Type 2 diabetes mellitus without complications (principal); N28.9 Disorder of kidney and ureter, unspecified; D64.9 Anemia, unspecified; Z79.899 Other long term (current) drug therapy | CPT/HCPCS: 80048; 82043; 82570; 82607; 82728; 83540 ==

== ENCOUNTER 2024-12-19 13:36 | Outpatient (CLI) | payer MEDICARE, BC, SELFPAY | END 2024-12-19 13:37 | disposition home or self-care (01) | PROVIDERS: PCP Family Medicine; Visit Provider Family Medicine | DX: D64.9 Anemia, unspecified (principal); L50.1 Idiopathic urticaria; N28.9 Disorder of kidney and ureter, unspecified | CPT/HCPCS: 80048; 86140 ==

== ENCOUNTER 2025-01-01 10:13 | Outpatient (CLI) | payer MEDICARE, BC, SELFPAY | END 2025-01-01 10:14 | disposition home or self-care (01) | PROVIDERS: PCP Family Medicine; Referring Provider Family Medicine; Visit Provider Family Medicine | DX: D64.9 Anemia, unspecified (principal); L50.1 Idiopathic urticaria | CPT/HCPCS: 86140 ==

== ENCOUNTER 2025-01-14 23:48 | Emergency (ER) | payer MEDICARE, BC, SELFPAY ==
--- OUTSIDE RECORDS SUMMARY | 2025-01-14 23:50 | XMS_ITS | Clinical Summary ---
Author Organization [facility] Address [address] [place] [address] Care Team Providers Care Doweler Name Role Phone Elsewhere, Pcp Primary Care Provider Unavailabl e Source Comments Patient records contain information from all sites at [facility]. For routine questions regarding patient records, call [phone] during business hours, M-F 8:00 AM - 5:00 PM Central Time. Record requests for emergency care only can be directed to [phone] at any time.[facility] Allergies Active Allergy Reactions Criticality Noted Date Comments Grass Pollen Other (see comments) 06/23/2023 Seasonal Allergy Symptoms House Dust Other (see comments) 06/21/2022 Sneezing, watery eyes Tree And Shrub Pollen Other (see comments) 06/23/2023 Seasonal Allergy Symptoms Medications * This document contains information received from the source organization and may not represent a complete record from that organization. clonazePAM (KlonoPIN) 1 mg tablet Take 1 mg by mouth 2 (two) times a day as needed. 3 Active fexofenadine (MARK) 180 mg tablet Take 180 mg by mouth daily as needed for allergies. Active fluticasone propionate (FLOVENT HFA) 220 mcg/actuation inhaler Administer into nostril(s) as needed. 2 Active omeprazole (PriLOSEC) [address] capsule Take 20 mg by mouth daily before morning meal. Pt not taking, on hold prior to upper endoscopy 3 Active polyethylene glycol (MIRALAX) 17 gram/dose oral powder Take 17 g by mouth daily. 3 Active oxyCODONE (Roxicodone) 5 mg immediate release tabletIndicatio ns:Acute Pain Take 1 tablet (5 mg total) by mouth every 4 (four) hours as needed for pain Indication: Acute Pain. 10 tablet 10/06/2023 12:02 PM CDT 4 Active acetaminophen (TylenoL) 500 mg tablet Take 1 tablet (500 mg total) by mouth every 6 (six) hours as needed for pain. 100 tablet 10/06/2023 12:02 PM CDT 4 Active ibuprofen 600 mg tablet Take 1 tablet (600 mg total) by mouth every 6 (six) hours as needed for pain. 30 tablet 10/06/2023 12:02 PM CDT 4 Active lidocaine (LC-5) 5 % rectal cream APPLY 1 APPLICATION TOPICALLY NEEDED FOR HEMORRHOIDS. APPLY TO ANUS. 30 g 4 5 Active polyethylene glycol-electrol ytes (Golytely) 236-22.74-6.74 -5.86 gram solution Take first portion of the prep at 4pm the evening before and start second portion 3 to 6 hours before and finish 2 hours prior to report time. 4000 mL 09/05/2024 10:10 AM CDT 5 Active methylPREDNISol one (MedroL DosePak) 4 mg tablet take by mouth as directed on package 5 Active polyethylene glycol-electrol ytes (Golytely) 236-22.74-6.74 -5.86 gram solution Take first portion of the prep at 4pm the evening before and start second portion 3 to 6 hours before and finish 2 hours prior to report time. 4000 mL 5 Active dilTIAZem 2%-vanicream Apply topically 2 (two) times a day for 6-8 weeks to anal fissure. 30 g 1 01/08/2025 12:35 PM [employer]ER [employer]IG[employer] 5 Active Active Problems Problem Noted Date Diagnosed Date Anemia 10/03/2024 Stenosis Spinal Cervical 10/03/2024 Overview (10/03/2024): Per history had MRI in 2012 in [place] Anal Fistula, Complex, Persistent 09/09/2024 Anal Fistula, Unspecified 01/07/2024 Hemorrhoids External 02/21/2023 Fissure Anal 06/21/2022 Constipation 06/21/2022 Gastroesophageal Reflux Disease NOS Encounters Date Type Department Care Team Description 01/03/2025 Documentation Division of Gastroenterology in [place], [place] [address] [place] [address] Darrell Harris Jr., M.D., M.S. 12/19/2024 Clinical Communication Division of Gastroenterology in [place], [place] [address] [place] [address] Darrell Harris Jr., M.D., M.S. Symptom Assessment 12/06/2024 Orders Only Division of Colon and Rectal Surgery in [place], [place] [address] [place] [address] Jazmyne Mendez APRN, C.N.P., D.N.P. 12/06/2024 Refill Division of Colon and Rectal Surgery in [place], [place] [address] [place] [address] Jazmyne Mendez APRN, C.N.P., D.N.P. Med Refill from Last 3 Months Immunizations Immunization Administration Dates Next Due Influenza high dose QV(65 ye ars or older) (PF) 01/05/2023,12/23/2021,01/22/2021 MMR 07/12/2018 PCV20 02/02/2023 PPSV23 07/17/2020 RZV (SHINGRIX) 10/11/2018,08/08/2017 SARS-COV-2 (COVID-19) - PFIZ ER TS(Discontinued)(12 years or older) 06/15/2021 Td Preservative Free (TENIVAC, DECAVAC) 01/01/20 10 Tdap 07/17/2020 influenza vaccine quad (FLUZ ONE/FLUARIX) (6 months and older)(PF) 12/14/2018 Family History Medical History Relation Name Comments Alcohol abuse Father Rm Washington heavy drinker. Stopped drinking in early 70's Anxiety disorder Father Rm Washington Cancer Father Rm Washington Bladder Cancer Colon cancer Father Rm Washington Hypertension Father Rm Washington Transient ischemic attack Father Rm Washington he was in his early 90's Prostate cancer Father's Brother Leonidas Washington Suicide attempts Father's Brother Leonidas Washington Cancer Father's Sister Cindy Sanchez don't know Cancer Sister Irma Undefined Cance r Relation Name Status Comments Father Rm Washington Alive Father's Brother Leonidas Washington Alive Father's Sister Cindy Sanchez Alive Sister Irma Alive Social History Tobacco Use Types Packs/Day Years Used Date Smoking Tobacco: Never Passive Smoke Exposure: Past Smokeless Tobacco: Never Tobacco Cessation:Counseling Given: Not Answered Passive Exposure Comments:As a kid Dad smoked a little & a Pipe Alcohol Use Standard Drinks/Week Comments Not Currently 0 (1 standard drink = 0.6 oz pure alcohol) I haven't had any alcohol in the last 10 yrs [facility] Utilities Answer Date Recorded In the past 12 months has [facility] Z[employer], gas, oil, or water [employer] threatened to shut off services in your home? No 01/02/2024 Humiliation, Afraid, Rape, and Kick questionnair e [...] by your partner or ex-partner? No 09/30/2022 Hunger Vital Sign Answer Date Recorded Within the past 12 months, y ou worried that your food would run out before you got the money to buy more. Patient declined Within the past 12 months, t he food you bought just didn't last and you didn't have money to get more. Patient declined PRAPARE - Transportation Answer Date Re corded In the past 12 months, has l ack of transportation kept you from medical appointments or from getting medications? No 12/05 In the past 12 months, has l ack of transportation kept you from meetings, work, or from getting things needed for daily living? No 01/02/2024 Housing Stability Answer Date Recorded What is your living situation today? I have a [facility] place to live 01/02/2024 Sex and Gender Information Value Date Recorded Sex Assigned at Male 09/30/2022 4:37 AM CDT Legal Sex Male 2:54 PM [employer]IG[employer] Gender Identity Male 09/30/2022 4:37 AM CDT Sexual Orientation Straight 09/30/2022 4: 37 AM CDT Last Filed Vital Signs Vital Sign Reading Time Taken Comments Blood Pressure 124/79 10/03/2024 2:50 PM CDT Pulse 55 10/03/2024 2:50 PM CDT Temperature 36 C (96.8 F) 10/03/2024 2:50 PM CDT Respiratory Rate 14 10/03/2024 2:50 PM CDT Oxygen Saturation 96% 10/03/2024 2:50 PM CDT Inhaled Oxygen Concentration - - Weight 81 kg (178 lb 9.2 oz) 09/10/2024 10:04 AM CDT Height 175 cm (5' 8.9) 09/10/2024 10:04 AM CDT Body Mass Index 26.45 09/10/2024 10:04 AM CDT Plan of Treatment Upcoming Encounters Date Type Department Care Team (Latest Contact Info) Description 02/13/2025 11:30 AM H[employer] Appointment Division of Gastroenterology in [place], [place] [address] [place] [phone] Darrell Harris Jr., M.D., M.S. [address] [place] [address] Leonidas Pedro M.D. [address] [place] [phone] Discharge Disposition: Home or Self Care Scheduled Procedures Name Priority Associated Diagnoses Date/Ti me EXAMINATION UNDER ANESTHESIA ANORECTAL Anal Fistula, Complex, Persistent Health Maintenance Due Date Last Done Comments CT Colonography 1954 Cologuard 1955 Colonoscopy 1955 Colorectal Cancer Surveillance 1955 Hepatitis C Screening 1955 Depression Screening (Annual PHQ-2) 03/06/2024 COVID-19 Vaccine (2024- season) 2024 11/17/2023, 07/25/2023, 01/05/2023, Additional history exists Influenza Vaccine (#1) 2024 , 01/05/2023, 12/23/2021, Additional history exists Fasting Glucose for Diabetes Screening 09/11/2027 09/10/2024 DTaP,Tdap,and Td Vaccines (2 - Td or Tdap) 07/17/2030 07/17/2020, 12/31/2009 Zoster Vaccines Completed 10/11/2018, 08/08/2017 Pneumococcal vaccine (50+ years) Completed 02/02/2023, 07/17/2020 Fall Risk Screen (Annual) Completed 10/03/2024 IPV Vaccines Aged Out No longer eligi ble based on patient's age to complete this topic Medical Devices Implanted Type Area Marina Dry Dock Manager Device Identifier Shelf Expiration Date Model / Serial / Lot Staple Hardware e.g. pins/screws/r ods Right: Leg Procedures Procedure Name Priority Date/Time Associated Diagnosis Comments BASIC METABOLIC PANEL, S/P Routine 09/10/2024 12:36 PM CDT Gastroesophageal Reflux Disease Cough Unspecified Type from Last 3 Months or Most Recently Relevant to Health Maintenance Results * (ABNORMAL) Basic Metabolic Panel (09/10/2024 12:36 PM CDT) Pathologist [facility] Potassium, S 4.4 3.6 - 5.2 mmol/L 09/10/2024 1:51 PM CDT DTL Sodium, S 142 135 - 145 mmol/L 09/10/2024 1:51 PM CDT DTL Chloride, S 105 98 - 107 mmol/L 09/10/2024 1:51 PM CDT DTL Bicarbonate, S 24 22 - 29 mmol/L 09/10/2024 1:51 PM CDT DTL Anion Gap 13 7 - 15 09/10/2024 1:51 PM CDT DTL BUN (Blood Urea Nitrogen), S 11 8 - 24 mg/dL 09/10/2024 1:51 PM CDT DTL Creatinine 1.41(H) 0.74 - 1.35 mg/dL 09/10/2024 1:51 PM CDT DTL Estimated GFR (eGFR) 54(L) >=60 mL/min/BSA 09/10/2024 1:51 PM CDT DTL Comment: Estimated GFR calculated using the 2020 CKD_EPI creatinine equation. Calcium, Total, S 9.0 8.8 - 10.2 mg/dL 09/10/2024 1:51 PM CDT DTL Glucose, S 89 70 - 140 mg/dL 09/10/2024 1:51 PM CDT DTL Blood (Blood, Venous) 09/10/2024 12:36 PM CDT 09/10/2024 1:23 PM CDT John Paul Dickinson APRN, C.N.P., M.S. LAB BLOOD ADD -ON Final Result [facility] [address] [place] [address], [place] DTL [facility] [address] [place] [address] from Last 3 Months or Most Recently Relevant to Health Maintenance Insurance [facility] Advance Directives For more information, please contact: [phone] Documents on File Type Date Recorded Patient Database Security Expert Expl anation Advance Directives 07/06/2022 8:39 AM Jazmyne Ochoa HCPOA/ADVOCATE/AGENT/RE PRESENTATIVE/SURROGATE * Full Code (Latest Code Status on File) Date Activated Date Inactivated Comments 10/06/2023 7:33 AM 10/06/2023 1:43 PM Question Answer Comments Full Code: Discussed * Full Code Date Activated Date Inactivated Comments 03/23/2023 11:12 AM 03/23/2023 7:46 PM Question Answer Comments Full Code: Discussed * Full Code Date Activated Date Inactivated Comments 07/05/2022 10:35 AM 07/05/2022 4:05 PM Question Answer Comments Full Code: Discussed Healthcare Agents on File Name Relationship Healthcare Agent Relationshi p Communication Jazmyne Washington Spouse Health Care Agent Judy Murphy Unknown First Alternate Health Care Agent Care Teams Doweler Relationship Specialty Start Date End Date Elsewhere, Pcp PCP - General Family Medicine 07/05/22
--- OUTSIDE RECORDS SUMMARY | 2025-01-14 23:50 | XMS_ITS | Clinical Summary ---
Author Organization [facility] Address [address] [place] [address] Care Team Providers Care Care Director Rn Name Role Phone Lit Banegas MD Primary Care Provider [phone] Social History Tobacco Use Types Packs/Day Years Used Date Smoking Tobacco: Never Assessed Sex and Gender Information Value Date Recorded Sex Assigned at Not on file Legal Sex Male 2:54 PM CDT Gender Identity Not on file Sexual Orientation Not on file Plan of Treatment Health Maintenance Due Date Last Done Comments Tetanus booster 1965 Depression screening for age 12+ 1966 BMI (ht and wt on same day) for age 18+ 1972 Hepatitis C screening for ag e 18-79 1972 Colonoscopy through age 75 06/10/1999 Lipids for age 45-75 06/10/1999 Pneumococcal series for age 50+ (1 of 1 - PCV) 2004 Zoster (shingles) series for age 50+ (1 of 2) 2004 Influenza Vaccine (#1) 2024 RSV vaccine for adults or (1 - 1-dose 75+ series) 2029 Hepatitis B series for 19+ Aged Out N o longer eligible based on patient's age to complete this topic Insurance [address] [place] [id number] [employer] [facility] [place] Sub[place] Plan / Payer (Ef fective 2021-Present) Name:Slim Washington Relation to Subscriber:Self Name:Slim Washington Payer ID:[id number] (NAIC) Group ID:[id number] Type:Not on file Address: MAILSTOP: [id number] [place] [address] Care Teams Care Director Rn Relationship Specialty Start Date End Date Lit Banegas MD [address] [place] [address] PCP - General Family Practice 07/11/23
--- OUTSIDE RECORDS SUMMARY | 2025-01-14 23:50 | XMS_ITS | Encounter Summary ---
Author Organization [facility] Address [address] [place] [address] Care Team Providers Care Clip And Hanger Attacher Name Role Phone Elsewhere, Pcp Primary Care Provider Unavailabl e Reason for Visit * Reason Onset Date Comments Symptom Assessment 12/19/2024 Encounter Details Date Type Department Care Team (Latest Contact Info) Description 12/19/2024 Clinical Communication Division of Gastroenterology in [place], [place] [address] [place] [phone] Darrell Harris Jr., M.D., M.S. [address] [place] [phone] Symptom Assessment Social History Tobacco Use Types Packs/Day Years Used Date Smoking Tobacco: Never Passive Smoke Exposure: Past Smokeless Tobacco: Never Passive Exposure Comments:As a kid Dad smoked a little & a Pipe Alcohol Use Standard Drinks/Week Comments Not Currently 0 (1 standard drink = 0.6 oz pure alcohol) I haven't had any alcohol in the last 10 yrs [facility] Utilities Answer Date Recorded In the past 12 months has e electric, gas, oil, or water company threatened to shut off services in your [...] your living situation today? I have a [facility] place to live 01/02/2024 Sex and Gender Information Value Date Recorded Sex Assigned at Male 09/30/2022 4:37 AM CDT Legal Sex Male 2:54 PM WOODEN BOAT BUILDER Gender Identity Male 09/30/2022 4:37 AM CDT Sexual Orientation Straight 09/30/2022 4: 37 AM CDT documented as of this encounter Plan of Treatment Upcoming Encounters Date Type Department Care Team (Latest Contact Info) Description 02/13/2025 11:30 AM WOODEN BOAT BUILDER Appointment Division of Gastroenterology in [place], [place] 200 [place] [phone] Darrell Harris Jr., M.D., M.S. [address] [place] [phone] Leonidas Pedro M.D. 200 [place] [phone] Discharge Disposition: Home or Self Care Scheduled Procedures Name Priority Associated Diagnoses Date/Ti me EXAMINATION UNDER ANESTHESIA ANORECTAL Anal Fistula, Complex, Persistent documented as of this encounter Visit Diagnoses Not on filedocumented in this encounter Care Teams Clip And Hanger Attacher Relationship Specialty Start Date End Date Elsewhere, Pcp PCP - General Family Medicine 07/05/22 documented as of this encounter
--- OUTSIDE RECORDS SUMMARY | 2025-01-14 23:50 | XMS_ITS | Encounter Summary ---
Author Organization [facility] Address [address] [place] [address] Care Team Providers Care Document Scanner Name Role Phone Elsewhere, Pcp Primary Care Provider Unavailabl e Encounter Details Date Type Department Care Team (Late st Contact Info) Description 01/03/2025 Documentation Division of Gastroenterology in [place], [place] [address] [place] [phone] Darrell Harris Jr., M.D., M.S. [address] [place] [phone] Social History Tobacco Use Types Packs/Day Years Used Date Smoking Tobacco: Never Passive Smoke Exposure: Past Smokeless Tobacco: Never Passive Exposure Comments:As a kid Dad smoked a little & a Pipe Alcohol Use Standard Drinks/Week Comments Not Currently 0 (1 standard drink = 0.6 oz pure alcohol) I haven't had any alcohol in the last [address] [facility] Utilities Answer Date Recorded In the past [...] ways by your partner or ex-partner? No 07 / Within the last year, have y ou [...] your living situation today? 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 - 01/03/2025 10:06 AM CDT I reviewed outside labs for BMP, ESR. I acknowledge a moderately elevated ESR which is chronic for patient. Other labs are within typical ranges. He has had some reduction in Hb from 10.1 (September 2024)to 9.4 (December 2024). We have endoscopies with TI exam planned to evaluate sources of anemia. Electronically signed by: Darrell Harris Jr., M.D., M.S. 01/03/25 10:09 AM CDT documented in this encounter Plan of Treatment Upcoming Encounters Date Type Department Care Team (Latest Contact Info) Description 02/13/2025 11:30 AM SAND SCREENER Appointment Division of Gastroenterology in [place], [place] [address] [place] [phone] Darrell Harris Jr., M.D., M.S. [address] [place] [phone] Leonidas Pedro M.D. [address] [place] [phone] Discharge Disposition: Home or Self Care Scheduled Procedures Name Priority Associated Diagnoses Date/Ti me EXAMINATION UNDER ANESTHESIA ANORECTAL Anal Fistula, Complex, Persistent documented as of this encounter Visit Diagnoses Not on filedocumented in this encounter Care Teams Document Scanner Relationship Specialty Start Date End Date Elsewhere, Pcp PCP - General Family Medicine 07/05/22 documented as of this encounter
--- OUTSIDE RECORDS SUMMARY | 2025-01-14 23:51 | XMS_ITS | Encounter Summary ---
Author Organization [facility] Address [address] [place] [address] Care Team Providers Care Underwriting Specialist Name Role Phone Elsewhere, Pcp Primary Care Provider Unavailabl e Encounter Details Date Type Department Care Team (Late st Contact Info) Description 12/06/2024 Orders Only Division of Colon and Rectal Surgery in [place], [place] [address] [place] [address] Jazmyne Mendez, MORENA, C.N.P., D.N.P. [address] [place] [phone] Social History Tobacco Use Types Packs/Day Years Used Date Smoking Tobacco: Never Passive Smoke Exposure: Past Smokeless Tobacco: Never Passive Exposure Comments:As a kid Dad smoked a little & a Pipe Alcohol Use Standard Drinks/Week Comments Not Currently 0 (1 standard drink = 0.6 oz pure alcohol) I haven't had any alcohol in the last 10 yrs [facility] Utilities Answer Date Recorded In the past 12 months has [facility] electric, gas, oil, or water [employer] threatened to shut off services in your [...] your living situation today? 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 [address] [place] [phone] Leonidas Pedro M.D. 200 [place] [phone] Discharge Disposition: Home or Self Care Scheduled Procedures Name Priority Associated Diagnoses Date/Ti me EXAMINATION UNDER ANESTHESIA ANORECTAL Anal Fistula, Complex, Persistent documented as of this encounter Visit Diagnoses Not on filedocumented in this encounter Care Teams Underwriting Specialist Relationship Specialty Start Date End Date Elsewhere, Pcp PCP - General Family Medicine 07/05/22 documented as of this encounter
--- OUTSIDE RECORDS SUMMARY | 2025-01-14 23:51 | XMS_ITS | CCD ---
Author Name Interface, [id number] l[facility] Address [address] [place] [address] [facility] Address [address] [place] [address] Reason for Visit Social History Date Name Value 11/02/2024 Sex Male
--- OUTSIDE RECORDS SUMMARY | 2025-01-14 23:51 | XMS_ITS | Data Portability ---
Author Organization [place] [facility] Address [address] [place] [phone] Assessment Encounter Date Assessment Date Assessment LastModified by Organization Details LastModified Time 01/25/2023 01/25/2023 67 Y/O MALE, HX FOR AN EPISODE OF HEMATURIA. SPONTANEOUSLY CLEARED. U/A SMALL BLOOD. CYSTO - NEG. REVIEWED RECORDS, LABS ORDERED AND REVIEWED U/A, CYSTO PLAN SCHEDULED C.T. UROGRAM. WILL CALL RESULTS. [email or web address] Not available 01/28/2023 16:29:22 Plan of Treatment Reminders Order Date Submit Date Provider Last Modified By Organization Details Last Modified Time Details Appointments None recorded. Lab urinalysis , dipstick 2022 023 [facility], [address], [place], [phone], 10:26:41 Referral None recorded. Procedures None recorded. Surgeries None recorded. Imaging None recorded. Medication Orders None recorded. Patient TargetsNo targets recorded. Patient InstructionsNo instructions recorded. Reason for Referral None Reported. Results Created Date Observation Date Name Description Value Unit Range Abnormal Flag Note LastModifiedBy Organization Detail LastModifiedTime 01/26/2001/25/2023 urina lysis , dipst ick Color-Status Yellow Not Available [facility] [address], [place], [phone], 01/25/2023 10:25:59 01/26/20 23 01/25/2023 urina lysis , dipst ick Clarity-Stat us Clear Not Available [facility] [address], [place], [phone], 01/25/2023 10:25:59 01/26/20 23 01/25/2023 urina lysis , dipst ick Glucose-Stat us Negati ve Not Available [facility] [address], [place], [phone], 01/25/2023 10:25:59 01/26/20 23 01/25/2023 urina lysis , dipst ick Bilirubin-St atus Negati ve Not Available [facility] [address], [place], [address], 01/25/2023 10:25:59 01/26/20 23 01/25/2023 urina lysis , dipst ick Ketones-Stat us Negati ve Not Available [facility] [address], [place], [phone], 01/25/2023 10:25:59 01/26/20 23 01/25/2023 urina lysis , dipst ick Sp Blackduck-Stat us 1.015 Not Available [facility] [address], [place], [address], 01/25/2023 10:25:59 01/26/20 23 01/25/2023 urina lysis , dipst ick pH-Status 7.0 Not Available [facility] [address], [place], [address], 01/25/2023 10:25:59 01/26/20 23 01/25/2023 urina lysis , dipst ick Urobilinogen -Status 0.2 Not Available [facility] [address], [place], [address], 01/25/2023 10:25:59 01/26/20 23 01/25/2023 urina lysis , dipst ick Nitrates-Sta tus negati ve Not Available [facility] [address], [place], [address], 01/25/2023 10:25:59 01/26/20 23 01/25/2023 urina lysis , dipst ick Blood-Status Trace Not Available [facility] [address], [place], [address], 01/25/2023 10:25:59 01/26/20 23 01/25/2023 urina lysis , dipst ick Leuko-Status Negati ve Not Available [facility] [address], [place], [address], 01/25/2023 10:25:59 01/26/20 23 01/25/2023 urina lysis , dipst ick Specimen Type Voided Not Available [facility] [address], [place], [address], 01/25/2023 10:25:59 Result Notes None recorded. Problems Name Problem SNOMED Code Status Onset Date Resolution Date Notes Provider Name and Address Organization Details Recorded Time Heriberto hematuria [id number] Active 023 Christian Iraheta MD [address] [place] [address],[address] [place] [address], [phone], [facility] 10:22:50 Problem Notes None recorded. Procedures Surgical History Date Name Laterality Status Provider Name and Address Organization Details Recorded Time 01/26/20 CystoscopyMale completed Christian Iraheta MD [address] [place] [address],[address] [place] [address], [phone], [facility] 01/28/2023 16:26:24 Orthopedic Surgery completed Christian Iraheta MD [address] [place] [address],[address] [place] [address], [phone], [facility] 01/25/2023 10:23:41 Imaging Results None [...] Updated DateTime 01/25/2023 172.72 cm 26 kg/m2 11355.3 g Christian Iraheta MD [address] [place] [address], [phone] [place] [address] Urology 01/25/2023 10:20:42 Social History Question Answer Notes LastModified by Organizat ion Details LastModified Time Tobacco Smoking Status Never Smoker Christian Iraheta MD [address] [place] [address],[address], [phone] [place] [address] Urology 01/25/2023 10:23:30 What Was The Date Of Your Most Recent Tobacco Screening? 01/25/2023 Information not available 01/25/2023 Sex: Unknown Functional Status Question Answer Note LastModified by Organization D etails LastModified Time What is your level of alcohol consumption? None Information not available 01/25/2023 Mental Status None recorded. Family History Relationship Description Onset Age of this Age Resolved Age Notes LastModified by Organization Details LastModified Time Father Malignant neoplasm of urinary bladder Not available 2022 10:26:53 Medical History Condition Response Sexually Transmitted Infection N Diabetes N Other N Bleeding Disorder N High Blood Pressure Y Kidney Stones N High Cholesterol N GERD/Acid Reflux Y Heart Disease N Cancer N Lung Disease N Depression Y Immunizations Vaccine Type Date Status Note Provider Nam e and Address Organization Details Recorded Time zoster recombinant 9 completed Christian Iraheta MD [address] [place] [address],[address], [place], [phone], [facility] 01/25/2023 10:20:47 Influenza, high-dose, quadrivalent, PF 2 completed Christian Iraheta MD [address] [place] [address],[facility] [address], [phone], [facility] 01/25/2023 10:20:47 Influenza, high-dose, quadrivalent, PF 3 completed Christian Iraheta MD [address] [place] [address],[facility] [address], [address], [facility] 01/25/2023 10:20:48 Influenza, high-dose, quadrivalent, PF 1 completed Christian Iraheta MD [address] [place] [address],[address], [place], [phone], [facility] 01/25/2023 10:20:48 MMR 9 completed Christian Iraheta MD [address] [place] [address],[address] [phone], [facility] 01/25/2023 10:20:48 COVID-19, mRNA, LNP-S, PF, 30 mcg/0.3 mL dose 1 completed Christian Iraheta MD [address] [place] [address],[facility] [address], [phone], [facility] 01/25/2023 10:20:48 COVID-19, mRNA, LNP-S, PF, 30 mcg/0.3 mL dose 1 completed Christian Iraheta MD [address] [place] [address],[facility] [address] [phone], [facility] 01/25/2023 10:20:48 COVID-19, mRNA, LNP-S, PF, 30 mcg/0.3 mL dose 1 completed Christian Iraheta MD [address] [place] [address],[address], [place], [phone], [facility] 01/25/2023 10:20:48 COVID-19, mRNA, LNP-S, PF, 30 mcg/0.3 mL dose, norma-sucrose 2 completed Christian Iraheta MD [address] [place] [address],[address], [place], [phone], [facility] 01/25/2023 10:20:48 COVID-19, mRNA, LNP-S, bivalent, PF, 30 mcg/0.3 mL dose 2 completed Christian Iraheta MD [address] [place] [address],[facility] [address], [place], [phone], [facility] 01/25/2023 10:20:48 COVID-19, mRNA, LNP-S, PF, norma-sucrose, 30 mcg/0.3 mL 3 completed Christian Iraheta MD [address] [place] [address],[address], [place], [phone], [facility] 01/25/2023 10:20:48 pneumococcal polysaccharide PPV23 1 completed Christian Iraheta MD [address] [place] [address],[place] [address], [place], [address], [facility] 01/25/2023 10:20:48 Tdap 1 completed Christian Iraheta MD [address] [place] [address],[place] [address], [place], [phone], [facility] 01/25/2023 10:20:48 Td (adult), 5 Lf tetanus toxoid, preservative free, adsorbed 0 completed Christian Iraheta MD [address] [place] [address],[facility] [address], [place], [phone], [facility] 01/25/2023 10:20:48 Influenza, split virus, quadrivalent, PF 9 completed Christian Iraheta MD [address] [place] [address],[address], [place], [address], [facility] 01/25/2023 10:20:48 Past Encounters Encounter ID Performer Location Encounter Start Date Encounter Closed Date Diagnosis/Indication Diagnosis SNOMED-CT Code Diagnosis ICD10 Code Diagnosis IMO Codes Diagnosis Note [id number] Christian Iraheta MD [facility] [address] [phone] 01/25/2023 10:06:31 02/01/2023 15:57:31 Heriberto hematuria [id number] R31.0 Health Concerns Section Related Observation LastModified by Organization Detai ls LastModified Time None Recorded Concern Status LastModified by Organization Details LastModified Time None Recorded Advance Directives Directive None Recorded Payers Insurance Date Sequence Insurance Name Policy Number Policy Curtis Covered Member ID Curtis Member ID Guarantor Name 02/06/2023 1 [place] (MEDICARE REPLACEMENT/ ADVANTAGE - HMO) [id number] Slim A Felix [id number] Slim A Felix 02/06/2023 1 [id number] Slim A Felix [id number] Slim A Felix Notes Date Note Type Note Provider Name and Address Organization Details Recorded Time 01/25/2023 text/html 67 YO M HERE FOR EPISODIC HEMATURIA. HE REPORTS PASSING SMALL CLOTS IN DECEMBER. [facility] TODAY SHOWS TRACE RBC. FATHER HAD BLADDER CANCER .VOIDING WELL. NO BLEEDING PROBLEMS Christian Iraheta MD [address] [facility],[address], [place], [address], [facility] 01/28/2023 16:30:29
--- OUTSIDE RECORDS SUMMARY | 2025-01-14 23:51 | XMS_ITS | Encounter Summary ---
Author Organization [facility] Address [address] [place] [address] Care Team Providers Care Mud Worker Name Role Phone Elsewhere, Pcp Primary Care Provider Unavailabl e Reason for Visit * Reason Comments Med Refill Encounter Details Date Type Department Care Team (Late st Contact Info) Description 12/06/2024 Refill Division of Colon and Rectal Surgery in [place], [place] [address] [place] [address] Jazmyne Mendez APRN, C.N.P., D.N.P. [address] [place] [phone] Med Refill Social History Tobacco Use Types Packs/Day Years Used Date Smoking Tobacco: Never Passive Smoke Exposure: Past Smokeless Tobacco: Never Passive Exposure Comments:As a kid Dad smoked a little & a Pipe Alcohol Use Standard Drinks/Week Comments Not Currently 0 (1 standard drink = 0.6 oz pure alcohol) I haven't had any alcohol in the last 10 yrs [facility] Utilities Answer Date Recorded In the [...] your living situation today? 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 [address] [place] [phone] Leonidas Pedro M.D. 200 [place] [phone] Discharge Disposition: Home or Self Care Scheduled Procedures Name Priority Associated Diagnoses Date/Ti me EXAMINATION UNDER ANESTHESIA ANORECTAL Anal Fistula, Complex, Persistent documented as of this encounter Visit Diagnoses Not on filedocumented in this encounter Care Teams Mud Worker Relationship Specialty Start Date End Date Elsewhere, Pcp PCP - General Family Medicine 07/05/22 documented as of this encounter
[2025-01-15] VITALS (27 sets, daily range): BP systolic 90–119; BP diastolic 62–82; PULSE 80–108; RESP 15–28; TEMP 36.9–37.7; O2SAT 90–99; BMI 26.6
--- NOTE | 2025-01-15 00:24 | CRLHL7_ITS ---
For Patients: As a result of the Century Cures Act, medical imaging exams and procedure reports are released immediately into your electronic medical record. You may view this report before your referring provider. If you have questions, please contact your health care provider. Indication: Orthopnea. Technique: Two views of the chest. Comparison: None. Findings/Impression: The heart is not abnormally enlarged. Mediastinal contours are grossly within normal limits. Mild basilar atelectasis. No definite confluent airspace opacity. No pleural effusion or pneumothorax. No acute osseous abnormality. Dictated by Humberto Weiner MD @ 01/15/2025 1:00:31 AM (Electronically Signed)
--- NOTE | 2025-01-15 00:39 | ED.GENADULT ---
HPI - General Adult General Chief complaint: Weakness Stated complaint: respiratory virus, body aches Time Seen by Provider: 01/15/25 00:03 Source: patient History of Present Illness HPI narrative: 69-year-old male presents to the emergency department for evaluation of weakness in the legs. Patient has had escalating symptoms over the past several days. He has been undergoing an outpatient workup for anemia, notes briefly reviewed. He has a notable history of what he states is idiopathic urticaria diagnosed 2 years ago. He states that he has been having some dyspnea and respiratory changes over the past few days, was evaluated in urgent care a day ago, started on Augmentin, has only had 1 dose of it thus far. Not running fever but feels more short of breath with laying down. He has no chest pain, no prior cardiac history. He has swelling of the legs and arms, the swelling of the arms really has escalated just today. No trauma or injury. He is not having any bloody stools, no blood in his urine. He has a colonoscopy scheduled at [facility] per his report but this is in about a month. He his legs feel very weak, nonspecific, nonfocal. He has never experienced that symptom before. He is worried there is something more serious going on. He reports that he had an autoimmune workup a couple of years ago as part of the workup for the urticaria, reports that it was negative. He started taking prednisone yesterday and reports that now he seems to be having more swelling and that he is experiencing worsening of his rash. When I ask if this is similar to the rash she had a couple years ago, he is not sure. He denies any blood in his stools, no blood in his urine. No focal neurological changes or stroke-like symptoms. Spouse had recent upper respiratory infection prior to patient, symptoms have improved and were not consistent with the severity that the patient is currently reporting. Past medical history notable for Raynaud's disease, osteoarthritis, GERD, anxiety, mild renal disease. Currently on prescription for Augmentin and prednisone. Home medications notable for omeprazole and clonazepam. Denies any drug allergies. Nonsmoker. ROS is notable for the generalized, dermatological, respiratory and musculoskeletal symptoms as above. Otherwise denies times 12 systems. Related Data Home Medications ?Medication ?Instructions ?Recorded ?Confirmed omeprazole 20 mg capsule,delayed 20 mg PO QDAY 06/24/24 01/13/25 release Previous Rx's ?Medication ?Instructions ?Recorded clonazepam 1 mg tablet 1 mg PO BID PRN anxiety #180 tabs 10/20/24 fexofenadine 180 mg tablet 180 mg PO BID PRN hives #180 tabs 12/19/24 (Alice Allergy) amoxicillin 875 mg-potassium 1 tab PO BID 7 days #14 tabs 01/13/25 clavulanate 125 mg tablet Allergies Allergy/AdvReac Type Severity Reaction Status Date / Time No Known Allergies Allergy Unknown Verified 01/13/25 14:44 PFSH PFS Medical History Renal insufficiency, mild ?N28.9 - Disorder of kidney and ureter, unspecified (ICD-10) Idiopathic urticaria ?L50.1 - Idiopathic urticaria (ICD-10) COVID-19 ?U07.1 - COVID-19 (ICD-10) Hemorrhoids ?K64.9 - Unspecified hemorrhoids (ICD-10) Hematuria ?R31.9 - Hematuria, unspecified (ICD-10) Surgical History Status post anal fissurectomy (07/2022) ?Z98.890 - Other specified postprocedural states (ICD-10) ?Z87.19 - Personal history of other diseases of the digestive system (ICD-10) History of vasectomy (2007) ?Z98.52 - Vasectomy status (ICD-10) History of sinus surgery (1974) ?Z98.890 - Other specified postprocedural states (ICD-10) History of right knee surgery (~1970) ?Z98.890 - Other specified postprocedural states (ICD-10) Family History Father Colon cancer, Onset Age: 82 TIA (transient ischemic attack), Onset Age: 90 Bladder cancer, Onset Age: 72 Uncle Prostate cancer Suicide Father Alcohol dependence Mother Alzheimers disease, Onset Age: 83 Meningioma Social History Narrative: , 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, 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 No regular exercise Lifetime nonsmoker Does not drink alcohol What is your current living situation?: I presently have a place to live Problems where you live: no known problems In the past 12 months, utilities in danger of being shut off: no In past 12 months, lack of transportation kept you from medical appts, meetings, work, or getting things needed for daily living: no In the past 12 mos, have been you worried that your food would run out before you had money to buy more?: never true In the past 12 mos, the food you bought just didn't last and you didn't have money to buy more?: never true Smoking Status: Never smoker Do you use any of these nicotine containing products: None How often do you have a drink containing alcohol: never AUDIT-C Alcohol total score: 0 Non-prescribed substance use: denies use How often does anyone, including family, friends and others, physically hurt you: never How often does anyone, including family, friends and others, insult or talk down to you: never How often does anyone, including family, friends and others, threaten you with harm: never How often does anyone, including family, friends and others, scream or curse at you: never Exam Const: Vital Signs, click to edit/add: Vital Signs - 24 hr 01/15/25 00:00 01/15/25 01:22 01/15/25 01:42 Temperature 99.9 F H Pulse Rate 84 83 Pulse Rate [Pulse Oximeter] 107 H Respiratory Rate 20 19 27 H Blood Pressure 119/76 113/67 Blood Pressure [Ri ght Upper Arm] 114/82 Pulse Oximetry 99 97 95 Oxygen Delivery Me thod Room Air 01/15/25 02:01 01/15/25 02:22 01/15/25 02:42 Temperature Pulse Rate 89 86 88 Pulse Rate [Pulse Oximeter] Respiratory Rate 15 20 22 Blood Pressure 110/66 110/69 105/67 Blood Pressure [Ri ght Upper Arm] Pulse Oximetry 97 96 95 Oxygen Delivery Me thod 01/15/25 03:01 01/15/25 03:21 01/15/25 03:42 Temperature Pulse Rate 85 90 87 Pulse Rate [Pulse Oximeter] Respiratory Rate 28 H 18 16 Blood Pressure 108/63 106/63 106/65 Blood Pressure [Ri ght Upper Arm] Pulse Oximetry 92 93 91 Oxygen Delivery Me thod 01/15/25 04:01 01/15/25 04:22 01/15/25 04:42 Temperature Pulse Rate 88 87 89 Pulse Rate [Pulse Oximeter] Respiratory Rate 18 16 18 Blood Pressure 111/63 106/67 108/66 Blood Pressure [Ri ght Upper Arm] Pulse Oximetry 94 91 92 Oxygen Delivery Me thod 01/15/25 05:01 01/15/25 05:22 01/15/25 06:01 Temperature 99.5 F Pulse Rate 87 89 90 Pulse Rate [Pulse Oximeter] Respiratory Rate 18 18 16 Blood Pressure 108/67 116/65 106/69 Blood Pressure [Ri ght Upper Arm] Pulse Oximetry 93 90 91 Oxygen Delivery Me thod Documenting provider has reviewed patient's vital signs: yes Common normals: alert Other: Appears weak, pale. Has difficulty getting up on the bed due to weakness in his legs. HENMT: Common normals: normocephalic, moist oral mucous membranes, oropharynx normal and dentition normal Head and scalp: normocephalic Face and sinus: normal facial exam Mouth: oral and palatal mucosa normal Other: Mucous membranes are pale, slightly dry. Eye: Common normals: conjunctivae normal General eye: normal appearance of both eyes Conjunctiva: conjunctiva(e) normal Neck & C-Spine: Common normals: full ROM, no lymphadenopathy and no meningeal signs General: normal visual inspection Chest: Common normals: inspection of chest normal Resp: Other: Breathing seems slightly labored when lying down. Breath sounds are little decreased in the bases but he does not have any obvious wheeze or crackles. Cardio: Common normals: regular rate, regular rhythm, S1 normal heart sound, S2 normal heart sound and no murmurs Rate: regular rate Rhythm: regular rhythm Heart sounds: S1 normal and S2 normal Other: No gallops in any position GI: Other: Appeared slightly distended, but liver and spleen do not seem enlarged. I do not feel any obvious masses. He is nontender to palpation. Bowel sounds are normoactive. Extremity: Other: Very strange appearing soft tissue swelling of both forearms, left greater than right but he also has swelling of the left hand, especially along the thenar eminence area. He has multiple patches of purpura, arms, legs, less so on the torso. The legs have 2+ edema up to the thighs. Asymmetric in the upper arms, left greater than right. Neuro: Common normals: no focal motor deficits Sensorium/orientation: alert Meningeal signs: no meningeal signs Other: 4-5 weakness in the upper and lower extremities that does seem atypical and acute. Proximal muscles seem more affected than distal Psych: Activity/motor behavior: appropriate eye contact Attention/concentration: attention grossly intact Memory/cognition: memory grossly intact Insight: insight good Judgement: judgment good Skin: Narrative: Purpura on arms, legs. Face and torso seems spared. Some areas of central clearing on the legs. Course Course ED Course: 6-year-old male with proximal muscle weakness, purpura, asymmetric strange soft tissue swelling, dyspnea, especially with lying flat and nonspecific symptoms that are very worrisome for vasculitis or strange autoimmune disease. I think there is something quite serious going on here. Will place peripheral IV, obtain typical labs also looking for vasculitis, autoimmune disease. Get a chest x-ray to see if there is any signs of heart failure from this. Will obtain viral swabs to check to see if there is any sign of complicating viral illness but he is likely going to need transfer. Await findings. Reevaluation(s) Reevaluation #1: Update: That is reviewed in CPK is elevated but the remainder are reasonably normal. Counseled patient that I think there is some sort of significant vasculitis going on. His renal function looks good, there is no hematuria. Initial vitals look very stable. I spoke with him about transfer, I do think he needs more urgent workup especially since now he is having significant progression and weakness and the swelling is worrisome. I do not think he has any signs of compartment syndrome at this time as he has good pulses, capillary refill and warmth in the distal extremities. He does have tenderness to palpation of the muscle bellies. Call placed to male, he has had some specialty care there in the past. There was a few hour delay but they did get back to us and are ultimately excepting of patient but do have a significant bed delay. They do anticipate that they will call back in the morning with acceptance and nurse to nurse report. Elect the patient know this is likely our best option. They are willing to wait for transfer. I did recommend ambulance transfer but they are planning to go by private conveyance. This would certainly be reasonable as long as his vital stay appropriate. Vital Signs Vital signs: Initial Vital Signs Temperature 99.9 F H 01/15/25 00:00 Temperature Source Temporal Artery Scan 01/15/25 00:00 Pulse Rate 107 H 01/15/25 00:00 Respiratory Rate 20 01/15/25 00:00 Blood Pressure 114/82 01/15/25 00:00 Blood Pressure Mean 92 01/15/25 00:00 Blood Pressure Position Sitting 01/15/25 00:00 Pulse Oximetry 99 01/15/25 00:00 Oxygen Delivery Method Room Air 01/15/25 00:00 Vital Signs Temperature 99.9 F H 01/15/25 00:00 Pulse Rate 107 H 01/15/25 00:00 Respiratory Rate 20 01/15/25 00:00 Blood Pressure 114/82 01/15/25 00:00 Pulse Oximetry 99 01/15/25 00:00 Oxygen Delivery Method Room Air 01/15/25 00:00 Temperature 99.5 F 01/15/25 06:01 Pulse Rate 90 01/15/25 06:01 Respiratory Rate 16 01/15/25 06:01 Blood Pressure 106/69 01/15/25 06:01 Pulse Oximetry 91 01/15/25 06:01 Oxygen Delivery Method Room Air 01/15/25 00:00 Medical Decision Making Lab Data Lab results reviewed: Yes I reviewed the patient's lab results Lab results narrative: Hemoglobin is essentially stable from last outpatient check. Sodium is down a little, creatinine is stable thankfully. Urinalysis does not show any blood. Inflammatory markers are mildly elevated, viral swabs are negative. CPK is quite elevated, uncertain etiology. Labs: Lab Results 01/15/25 01/15/25 01/15/25 Range/Units 00:00 00:45 00:46 WBC 5.62 (4.50-11.00) K/uL RBC 4.21 L (4.30-5.90) m/uL Hgb 9.5 L (13.5-17.5) gm/dL Hct 31.0 L (37.0-53.0) % MCV 74 L (80-100) fL MCH 23 L (26-34) pg MCHC 31 L (32-36) gm/dL RDW Coeff of Areli 16.7 H (11.5-15.5) % Plt Count 282 (140-440) K/uL Neut % (Auto) 76.0 H (42.0-72.0) % Lymph % (Auto) 10.1 L (20-44) % Lehigh % (Auto) 13.3 H (0.0-11.0) % Eos % (Auto) 0.4 (0.0-7.0) % Baso % (Auto) 0.2 (0.0-3.0) % Neut # (Auto) 4.30 (1.7-7.0) K/uL Lymph # (Auto) 0.60 L (0.90-2.90) K/uL Lehigh # (Auto) 0.70 (0.00-0.90) K/UL Eos # (Auto) 0.02 (0.00-0.50) K/uL Baso # (Auto) 0.01 (0.00-0.30) K/uL Abs Immat Gran (auto) 0.00 (0.00-0.30) K/uL Imm/Tot Granulo (auto) 0.0 % ESR 23 H (2-15) mm/hr Sodium 131 L (135-149) mmol/L Potassium 3.5 L (3.6-5.1) mmol/L Chloride 95 L (96-114) mmol/L Carbon Dioxide 25 (20-32) mmol/L Anion Gap 11 (7-15) mEq/L BUN 17 (7-30) mg/dL Creatinine 1.2 (0.5-1.5) mg/dL Estimated Creat Clear 55.42 Estimated GFR 65 ml/min Glucose 128 H (60-115) mg/dL Uric Acid 4.1 (2.2-8.4) mg/dL Calcium 8.1 L (8.4-10.6) mg/dL Total Bilirubin 0.8 (0.1-1.5) mg/dL AST 41 H (12-35) U/L ALT 24 (4-50) U/L Alkaline Phosphatase 64 (40-150) U/L Total Creatine Kinase 958 H (54-186) U/L C-Reactive Protein 5.0 H (0.5-1.0) mg/dL NT-Pro-B Natriuret Pep 92 (See Note) pg/mL Total Protein 6.2 (6.0-8.3) g/dL Albumin 3.5 (3.3-5.0) g/dL Urine Color (Yellow) Urine Appearance (Clear) Urine pH (5.0-8.5) Ur Specific [place] (1.000-1.030) Urine Protein (Negative) Urine Glucose (UA) (Negative) Urine Ketones (Negative) Urine Blood (Negative) Urine Nitrite (Negative) Urine Bilirubin (Negative) Urine Urobilinogen (0.2-1.0) Ur Leukocyte Esterase (Negative) Urine RBC (0-2) Urine WBC (0-5) Ur Squamous Epith Cells (None-Few) Urine Bacteria (None) SARS-CoV-2 (PCR) Negative SARS-CoV-2 (Negative) Influenza Type A (PCR) Negative PCR FLU A (Negative) Influenza Type B (PCR) Negative PCR FLU B (Negative) RSV (PCR) Negative PCR RSV (Negative) POC Troponin I 0.00 L (0.01-0.04) ng/ml 01/15/25 Range/Units 01:10 WBC (4.50-11.00) K/uL RBC (4.30-5.90) m/uL Hgb (13.5-17.5) gm/dL Hct (37.0-53.0) % MCV (80-100) fL MCH (26-34) pg MCHC (32-36) gm/dL RDW Coeff of Areli (11.5-15.5) % Plt Count (140-440) K/uL Neut % (Auto) (42.0-72.0) % Lymph % (Auto) (20-44) % Lehigh % (Auto) (0.0-11.0) % Eos % (Auto) (0.0-7.0) % Baso % (Auto) (0.0-3.0) % Neut # (Auto) (1.7-7.0) K/uL Lymph # (Auto) (0.90-2.90) K/uL [place] # (Auto) (0.00-0.90) K/UL Eos # (Auto) (0.00-0.50) K/uL Baso # (Auto) (0.00-0.30) K/uL Abs Immat Gran (auto) (0.00-0.30) K/uL Imm/Tot Granulo (auto) % ESR (2-15) mm/hr Sodium (135-149) mmol/L Potassium (3.6-5.1) mmol/L Chloride (96-114) mmol/L Carbon Dioxide (20-32) mmol/L Anion Gap (7-15) mEq/L BUN (7-30) mg/dL Creatinine (0.5-1.5) mg/dL Estimated Creat Clear Estimated GFR ml/min Glucose (60-115) mg/dL Uric Acid (2.2-8.4) mg/dL Calcium (8.4-10.6) mg/dL Total Bilirubin (0.1-1.5) mg/dL AST (12-35) U/L ALT (4-50) U/L Alkaline Phosphatase (40-150) U/L Total Creatine Kinase (54-186) U/L C-Reactive Protein (0.5-1.0) mg/dL NT-Pro-B Natriuret Pep (See Note) pg/mL Total Protein (6.0-8.3) g/dL Albumin (3.3-5.0) g/dL Urine Color Yellow (Yellow) Urine Appearance Clear (Clear) Urine pH 5.5 (5.0-8.5) Ur Specific [place] 1.010 (1.000-1.030) Urine Protein Negative (Negative) Urine Glucose (UA) Negative (Negative) Urine Ketones Negative (Negative) Urine Blood Negative (Negative) Urine Nitrite Negative (Negative) Urine Bilirubin Negative (Negative) Urine Urobilinogen 0.2 (0.2-1.0) Ur Leukocyte Esterase Negative (Negative) Urine RBC 0-2 (0-2) Urine WBC 0-2 (0-5) Ur Squamous Epith Cells Few (None-Few) Urine Bacteria Few A (None) SARS-CoV-2 (PCR) (Negative) Influenza Type A (PCR) (Negative) Influenza Type B (PCR) (Negative) RSV (PCR) (Negative) POC Troponin I (0.01-0.04) ng/ml Imaging Data Chest x-ray: Attestation: I have reviewed the pertinent imaging results. My impression: No signs of heart failure, vascular infiltrates or effusions. Heart silhouette is not enlarged. Radiologist's impression: Findings/Impression: The heart is not abnormally enlarged. Mediastinal contours are grossly within normal limits. Mild basilar atelectasis. No definite confluent airspace opacity. No pleural effusion or pneumothorax. No acute osseous abnormality. Dictated by Humberto Weiner MD @ 01/15/2025 1:00:31 AM ECG Data Attestation: I personally reviewed and interpreted this ECG as follows: Prior ECG tracings: available for review (Comparison May 27) Interpretation: Sinus rhythm with a rate of 99. Normal intervals and axis. There are some nonspecific ST changes in the anterolateral leads but they are less than 1 box, no T-wave abnormalities. It is a little more pronounced than last year, but nonspecific. Discharge Plan Discharge Clinical Impression: [facility]cul[facility] St[facility] Prescriptions: No Action omeprazole 20 mg capsule,delayed release(DR/EC) 20 mg PO QDAY fexofenadine [Alice Allergy] 180 mg tablet 180 mg PO BID PRN (Reason: hives) Qty: 180 1RF amoxicillin-pot clavulanate 875-125 mg tablet 1 tab PO BID 7 Days Qty: 14 0RF clonazepam 1 mg tablet 1 mg PO BID PRN (Reason: anxiety) Qty: 180 1RF Stand Alone Forms: [facility] Info Instructions
[2025-01-15 00:54] LABS: PCR FLU A Negative PCR FLU A (Negative); PCR FLU B Negative PCR FLU B (Negative); PCR RSV Negative PCR RSV (Negative); SARS PCR* Negative SARS-CoV-2 (Negative)
--- OUTSIDE RECORDS SUMMARY | 2025-01-15 00:54 | XMS_ITS | CCD ---
Author Name Interface, [id number] lity Address [address] [place] [address] [facility] Address [address] [place] [address] Reason for Visit Social History Date Name Value 11/02/2024 Sex Male
--- OUTSIDE RECORDS SUMMARY | 2025-01-15 00:54 | XMS_ITS | Encounter Summary ---
Author Organization [facility] Address [address] [place] [address] Care Team Providers Care Supervisor Rolling Room Name Role Phone Elsewhere, Pcp Primary Care Provider Unavailabl e Reason for Visit * Reason Onset Date Comments Symptom Assessment 12/19/2024 Encounter Details Date Type Department Care Team (Latest Contact Info) Description 12/19/2024 Clinical Communication Division of Gastroenterology in [place], [place] [address] [place] [phone] Darrell Harris Jr., M.D., M.S. [address] [place] [phone] Symptom Assessment Social History Tobacco Use Types Packs/Day Years Used Date Smoking Tobacco: Never Passive Smoke Exposure: Past Smokeless Tobacco: Never Passive Exposure Comments:As a kid Dad smoked a little & a Pipe Alcohol Use Standard Drinks/Week Comments Not Currently 0 (1 standard drink = 0.6 oz pure alcohol) I haven't had any alcohol in the last 10 yrs [facility] Utilities Answer Date Recorded In the past [...] your living situation today? 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 [address] [place] [phone] Leonidas Pedro M.D. [address] [place] [phone] Discharge Disposition: Home or Self Care Scheduled Procedures Name Priority Associated Diagnoses Date/Ti me EXAMINATION UNDER ANESTHESIA ANORECTAL Anal Fistula, Complex, Persistent documented as of this encounter Visit Diagnoses Not on filedocumented in this encounter Care Teams Supervisor Rolling Room Relationship Specialty Start Date End Date Elsewhere, Pcp PCP - General Family Medicine 07/05/22 documented as of this encounter
--- OUTSIDE RECORDS SUMMARY | 2025-01-15 00:55 | XMS_ITS | CCD ---
Author Name Interface, [id number] lity Address [address] [place] [address] [facility] Address [address] [place] [address] Reason for Visit Social History Date Name Value 11/02/2024 Sex Male
--- OUTSIDE RECORDS SUMMARY | 2025-01-15 00:55 | XMS_ITS | Clinical Summary ---
Author Organization [facility] Address [address] [place] [address] Care Team Providers Care Well Treatment Offsider Name Role Phone Lit Banegas MD Primary Care Provider [phone] Social History Tobacco Use Types Packs/Day Years [...] complete this topic Insurance [id number] [place] [id number] [employer] [facility] / Payer (Ef fective 2021-Present) Name:Slim Washington Relation to Subscriber:Self Name:Slim Washington Payer ID:[id number] (NAIC) Group ID:[id number] Type:Not on file Address: MAILSTOP: [id number] [place] [address] Care Teams Well Treatment Offsider Relationship Specialty Start Date End Date Lit Banegas MD [address] [place] [address] PCP - General Family Practice 07/11/23
--- OUTSIDE RECORDS SUMMARY | 2025-01-15 00:55 | XMS_ITS | Encounter Summary ---
Author Organization [facility] Address [address] [place] [address] Care Team Providers Care Tire Buster Name Role Phone Elsewhere, Pcp Primary Care Provider Unavailabl e Encounter Details Date Type Department Care Team (Late st Contact Info) Description 12/06/2024 Orders Only Division of Colon and Rectal Surgery in [place], [place] [address] [place] [phone] Jazmyne Mendez, MORENA, C.N.P., D.N.P. [address] [place] [phone] Social History Tobacco Use Types Packs/Day Years Used Date Smoking Tobacco: Never Passive Smoke Exposure: Past Smokeless Tobacco: Never Passive Exposure Comments:As a kid Dad smoked a little & a Pipe Alcohol Use Standard Drinks/Week Comments Not Currently 0 (1 standard drink = 0.6 oz pure alcohol) I haven't had any alcohol in the last 10 yrs [facility] Utilities Answer Date Recorded In the past 12 months has [facility] electric, gas, oil, or water [employer] threatened to shut off services in your [...] your living situation today? 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 [address] [place] [phone] Leonidas Pedro M.D. [address] [place] [phone] Discharge Disposition: Home or Self Care Scheduled Procedures Name Priority Associated Diagnoses Date/Ti me EXAMINATION UNDER ANESTHESIA ANORECTAL Anal Fistula, Complex, Persistent documented as of this encounter Visit Diagnoses Not on filedocumented in this encounter Care Teams Tire Buster Relationship Specialty Start Date End Date Elsewhere, Pcp PCP - General Family Medicine 07/05/22 documented as of this encounter
--- OUTSIDE RECORDS SUMMARY | 2025-01-15 00:55 | XMS_ITS | Clinical Summary ---
Author Organization [facility] Address [address] [place] [address] Care Team Providers Care Production Technologist Name Role Phone Elsewhere, Pcp Primary Care Provider Unavailabl e Source Comments Patient records contain information from all sites at [facility]. For routine questions regarding patient records, call [phone] during business hours, M-F 8:00 AM - 5:00 PM Central Time. Record requests for emergency care only can be directed to [phone] at any time.[facility] Allergies Active Allergy Reactions Criticality Noted Date [...] fissure. 30 g 1 01/08/2025 12:35 PM AMERICAN BOARD CERTIFIED ORTHOTIST 5 Active Active Problems Problem Noted Date Diagnosed Date Anemia 10/03/2024 Stenosis Spinal Cervical 10/03/2024 Overview (10/03/2024): Per history had MRI in 2012 in [place] Anal Fistula, Complex, Persistent 09/09/2024 Anal Fistula, Unspecified 01/07/2024 Hemorrhoids External 02/21/2023 Fissure Anal 06/21/2022 Constipation 06/21/2022 Gastroesophageal Reflux Disease NOS Encounters Date Type Department Care Team Description 01/03/2025 Documentation Division of Gastroenterology in [place], [place] [address] [place] [address] Darrell Harris Jr., M.D., M.S. 12/19/2024 Clinical Communication Division of Gastroenterology in [place], [place] [address] [place] [phone] Darrell Harris Jr., M.D., M.S. Symptom Assessment 12/06/2024 Orders Only Division of Colon and Rectal Surgery in [place], [place] [address] [place] [phone] Jazmyne Mendez APRN, C.N.P., D.N.P. 12/06/2024 Refill Division of Colon and Rectal Surgery in [place], [place] [address] [place] [phone] Jazmyne Mendez APRN, C.N.P., D.N.P. Med Refill [...] any alcohol in the last 10 yrs [facility] Utilities Answer Date Recorded In the past 12 months has [facility] [employer], gas, oil, or water [employer] threatened to shut off services in your [...] living situation today? I have a [facility] place to live 01/02/2024 Sex and Gender Information Value Date Recorded Sex Assigned at Male 09/30/2022 4:37 AM CDT Legal Sex Male 2:54 PM AMERICAN BOARD CERTIFIED ORTHOTIST Gender Identity Male 09/30/2022 4:37 AM CDT [...] (Latest Contact Info) Description 02/13/2025 11:30 AM AMERICAN BOARD CERTIFIED ORTHOTIST Appointment Division of Gastroenterology in [place], [place] [address] [place] [phone] Darrell Harris Jr., M.D., M.S. 200 [place] [address] Leonidas Pedro M.D. 200 [place] [phone] Discharge Disposition: Home or Self Care Scheduled [...] this topic Medical Devices Implanted Type Area Parole Officer Device Identifier Shelf Expiration Date Model / Serial / Lot Staple Hardware e.g. pins/screws/r ods Right: Leg Procedures Procedure Name Priority Date/Time Associated Diagnosis Comments BASIC METABOLIC PANEL, S/P Routine 09/10/2024 12:36 PM CDT Gastroesophageal Reflux Disease Cough Unspecified Type from Last 3 Months or Most Recently Relevant to Health Maintenance Results * (ABNORMAL) Basic Metabolic Panel (09/10/2024 12:36 PM CDT) Pathologist [facility] [place] Potassium, S 4.4 3.6 - 5.2 mmol/L [...] M.S. LAB BLOOD ADD -ON Final Result [facility] [address] [place] [address], [place] DTL [facility] [address] [place] [address] from Last 3 Months or Most Recently Relevant to Health Maintenance Insurance [facility] MEDIC[facility] Advance Directives For more information, please contact: [phone] Documents on File Type Date Recorded Patient K9 Handler Expl anation Advance Directives 07/06/2022 8:39 AM [...] First Alternate Health Care Agent Care Teams Production Technologist Relationship Specialty Start Date End Date Elsewhere, Pcp PCP - General Family Medicine 07/05/22
--- OUTSIDE RECORDS SUMMARY | 2025-01-15 00:55 | XMS_ITS | Encounter Summary ---
Author Organization [facility] Address [address] [place] [phone] Care Team Providers Care Cleaning Handyman Name Role Phone Elsewhere, Pcp Primary Care Provider Unavailabl e Encounter Details Date Type Department Care Team (Late st Contact Info) Description 01/03/2025 Documentation Division of Gastroenterology in [place], [place] [address] [place] [phone] Darrell Harris Jr., M.D., M.S. [address] [place] [phone] Social History Tobacco Use Types Packs/Day Years Used Date Smoking Tobacco: Never Passive Smoke Exposure: Past Smokeless Tobacco: Never Passive Exposure Comments:As a kid Dad smoked a little & a Pipe Alcohol Use Standard Drinks/Week Comments Not Currently 0 (1 standard drink = 0.6 oz pure alcohol) I haven't had any alcohol in the last 10 yrs [facility] Utilities Answer Date Recorded In the [...] your living situation today? I have a [facility] place to live 01/02/2024 Sex and Gender Information Value Date Recorded Sex Assigned at Male 09/30/2022 4:37 AM CDT Legal Sex Male 2:54 PM LEASE ANALYST Gender Identity Male 09/30/2022 4:37 AM CDT [...] (Latest Contact Info) Description 02/13/2025 11:30 AM LEASE ANALYST Appointment Division of Gastroenterology in [place], [place] [address] [place] [phone] Darrell Harris Jr., M.D., M.S. [address] [place] [phone] Leonidas Pedro M.D. [address] [place] [phone] Discharge Disposition: Home or Self Care Scheduled Procedures Name Priority Associated Diagnoses Date/Ti me EXAMINATION UNDER ANESTHESIA ANORECTAL Anal Fistula, Complex, Persistent documented as of this encounter Visit Diagnoses Not on filedocumented in this encounter Care Teams Cleaning Handyman Relationship Specialty Start Date End Date Elsewhere, Pcp PCP - General Family Medicine 07/05/22 documented as of this encounter
--- OUTSIDE RECORDS SUMMARY | 2025-01-15 00:55 | XMS_ITS | Encounter Summary ---
Author Organization [facility] Address [address] [place] [phone] Care Team Providers Care Time Study Statistician Name Role Phone Elsewhere, Pcp Primary Care Provider Unavailabl e Reason for Visit * Reason Comments Med Refill Encounter Details Date Type Department Care Team (Late st Contact Info) Description 12/06/2024 Refill Division of Colon and Rectal Surgery in [place], [place] [address] [place] [address] Jazmyne Mendez APRN, C.N.P., D.N.P. [address] [place] [phone] Med Refill Social History Tobacco Use Types Packs/Day Years Used Date Smoking Tobacco: Never Passive Smoke Exposure: Past Smokeless Tobacco: Never Passive Exposure Comments:As a kid Dad smoked a little & a Pipe Alcohol Use Standard Drinks/Week Comments Not Currently 0 (1 standard drink = 0.6 oz pure alcohol) I haven't had any alcohol in the last 10 yrs [facility] Utilities Answer Date Recorded In [...] your living situation today? I have a [facility] place to live 01/02/2024 Sex and Gender Information Value Date Recorded Sex Assigned at Male 09/30/2022 4:37 AM CDT Legal Sex Male 2:54 PM FIRMWARE MANAGER Gender Identity Male 09/30/2022 4:37 AM CDT Sexual Orientation Straight 09/30/2022 4: 37 AM CDT documented as of this encounter Plan of Treatment Upcoming Encounters Date Type Department Care Team (Latest Contact Info) Description 02/13/2025 11:30 AM FIRMWARE MANAGER Appointment Division of Gastroenterology in [place], [place] [address] [place] [phone] Darrell Harris Jr., M.D., M.S. [address] [place] [phone] Leonidas Pedro M.D. 200 [place] [phone] Discharge Disposition: Home or Self Care Scheduled Procedures Name Priority Associated Diagnoses Date/Ti me EXAMINATION UNDER ANESTHESIA ANORECTAL Anal Fistula, Complex, Persistent documented as of this encounter Visit Diagnoses Not on filedocumented in this encounter Care Teams Time Study Statistician Relationship Specialty Start Date End Date Elsewhere, Pcp PCP - General Family Medicine 07/05/22 documented as of this encounter
[2025-01-15 00:56] LABS: Hematocrit* 31.0 % (37.0-53.0); Hemoglobin* 9.5 gm/dL (13.5-17.5); Immature Granulocytes Abs Auto 0.00 K/uL (0.00-0.30); Immature Granulocytes Pct Auto 0.0 %; Mean Corpuscular HGB Conc 31 gm/dL (32-36); Mean Corpuscular Hemoglobin 23 pg (26-34); Mean Corpuscular Volume 74 fL (80-100); RDW Coefficient of Variation % 16.7 % (11.5-15.5); Red Blood Count* 4.21 m/uL (4.30-5.90); White Blood Count* 5.62 K/uL (4.50-11.00)
[2025-01-15 00:57] LABS: Lymphocytes Absolute Auto 0.60 K/uL (0.90-2.90); Slide Review Reflex No
[2025-01-15 00:59] LABS: Troponin, Point-of-Care* 0.00 ng/ml (0.01-0.04)
[2025-01-15 01:09] LABS: Albumin* 3.5 g/dL (3.3-5.0); Chloride* 95 mmol/L (96-114); Potassium* 3.5 mmol/L (3.6-5.1); Sodium* 131 mmol/L (135-149)
[2025-01-15 01:12] LABS: Alanine Aminotransferase* 24 U/L (4-50); Alkaline Phosphatase* 64 U/L (40-150); Anion Gap 11 mEq/L (7-15); Aspartate Amino Transferase* 41 U/L (12-35); Bilirubin Total* 0.8 mg/dL (0.1-1.5); Blood Urea Nitrogen* 17 mg/dL (7-30); Carbon Dioxide* 25 mmol/L (20-32); Creatine Kinase* 958 U/L (54-186); Creatinine* 1.2 mg/dL (0.5-1.5); Est. Creatinine Clearance* 55.42; Estimated Glomerular Filt Rate 65 ml/min; Total Protein* 6.2 g/dL (6.0-8.3)
[2025-01-15 01:13] LABS: Calcium* 8.1 mg/dL (8.4-10.6); Glucose* 128 mg/dL (60-115)
[2025-01-15 01:17] LABS: Appearance Urine Clear (Clear)
[2025-01-15 01:34] LABS: NT Pro B Type NatriureticPept* 92 pg/mL (See Note)
[2025-01-15 01:40] LABS: Erythrocyte SedimentationRate* 23 mm/hr (2-15)
[2025-01-15] MEDS: OMEPRAZOLE 20 MG CAPSULE DR PO (08:50)
--- NOTE | 2025-01-15 09:48 | PC.NURSE ---
IV infiltrated, removed and ice pack placed
[2025-01-15 11:06] LABS: Hematocrit* 28.7 % (37.0-53.0); Hemoglobin* 8.8 gm/dL (13.5-17.5); Immature Granulocytes Abs Auto 0.01 K/uL (0.00-0.30); Immature Granulocytes Pct Auto 0.2 %; Lactate* 1.5 mmol/L (0.5-1.9); Mean Corpuscular HGB Conc 31 gm/dL (32-36); Mean Corpuscular Hemoglobin 23 pg (26-34); Mean Corpuscular Volume 74 fL (80-100); RDW Coefficient of Variation % 16.7 % (11.5-15.5); Red Blood Count* 3.90 m/uL (4.30-5.90); White Blood Count* 6.09 K/uL (4.50-11.00)
[2025-01-15 11:07] LABS: Lymphocytes Absolute Auto 0.60 K/uL (0.90-2.90)
[2025-01-15 11:08] LABS: Slide Review Reflex No
[2025-01-15] MEDS: cefTRIAXone 2 GM in 0.9 % SODIUM CHLORIDE Mini-bag 100 ML IVPB (11:16)
[2025-01-15] MEDS: DOXYCYCLINE HYCLATE 100 MG PO (11:54)
[2025-01-16 23:00] LABS: Lyme ELISA Reflex 0.12 IV (<=0.90)
[2025-01-17 19:11] LABS: ANCA IFA Titer 1:20 (<1:20); Myeloperoxidase (MPO) Ab, IgG 0 AU/mL (0-19); Serine Proteinase 3 Ab IgG 0 AU/mL (0-19)
[2025-01-18 07:44] LABS: Anaplasma phagocyt PCR Not Detected
== END 2025-01-15 12:50 | disposition short-term general hospital (02) ==
PROVIDERS: Emergency Medicine; Emergency Provider Family Medicine; PCP Family Medicine
DX: R53.1 Weakness (principal); R21 Rash and other nonspecific skin eruption; M79.10 Myalgia, unspecified site; D64.9 Anemia, unspecified
CPT/HCPCS: 36415; 71046; 80053; 81001; 82550; 83036; 83516; 83605; 83880; 84484; 84550; 85025; 85651; 86140; 86618; 87040; 87086; 87468; 87469; 87484; 87631; 87798; 93005; 96361; 96365; 99284; 99285; A9270; J0696; J7030